=== PATIENT | male | born 1935 | race Caucasian/White ===

== ENCOUNTER 2020-04-22 17:52 | Emergency (ER) | payer MEDICARE, SELFPAY ==
[2020-04-22] VITALS (31 sets, daily range): BP systolic 108–131; BP diastolic 69–96; PULSE 65–99; RESP 17–28; TEMP 37.6; O2SAT 92–99
--- NOTE | ~2020-04-22 | CT_ITS ---
EXAMINATION: CT brain wo con DATE: 04/22/2020 19:45 INDICATION: Changes in mentation TECHNIQUE: Computed tomography (CT) of the head was performed without intravenous contrast. Sagittal and coronal reconstructions were performed. The mA was adjusted according to patient size. Iterative reconstruction technique was employed. The dose-length product was 681.00 mGy-cm. COMPARISON: None FINDINGS: Small old infarct in the right cerebellar hemisphere. No acute intracranial hemorrhage, acute infarct ion or abnormal extra axial fluid collection. There is mild scattered white matter hypoattenuation co nsistent with chronic small vessel ischemic disease. Symmetric prominence of the sulci and ventricles consistent with moderate age-appropriate diffuse cerebral volume loss. No mass/mass effect. Changes of bilateral intraocular lens replacement. The orbits, paranasal sinuses and mastoid air cells are no rmal. Intracranial calcified cerebral atherosclerosis is noted. IMPRESSION: 1. Small old right cerebellar infarct. No acute intracranial process. 2. Age-related changes including moderate diffuse volume loss and mild scattered white matter hypoatt enuation consistent with chronic small vessel ischemic disease. Reviewed, dictated and finalized at location A. LE DBA IMPRESSION: 1. Small old right cerebellar infarct. No acute intracranial process. 2. Age-related changes including moderate diffuse volume loss and mild scattere d white matter hypoattenuation consistent with chronic small vessel ischemic di sease.
--- NOTE | ~2020-04-22 | XR_ITS ---
EXAMINATION: XR chest 1V portable DATE: 04/22/2020 19:50 INDICATION: Lethargy. Transient alteration of awareness. TECHNIQUE: frontal view of the chest was obtained. COMPARISON: None FINDINGS: Animal streaky bibasilar opacities and favor atelectasis over pneumonia. No other airspace opacities, pulmonary edema, pleural effusion or pneumothorax. Heart size within normal limits for AP technique with paracardial fat pad extending between the apex of the heart and the left costophrenic angle. Med chantale sternotomy wires and changes of prior aortic valve repair. Severe thoracic and lower cervical spo ndylosis. IMPRESSION: 1. Mild bibasilar atelectasis. Reviewed, dictated and finalized at location A. ISH LITERATURE PROFESSOR
--- NOTE | 2020-04-22 18:07 | ECG_ITS ---
Measurements Intervals [place] Rate: 79 P: TX: 0 QRS: -11 QRSD: 133 T: 127 QT: 391 QTc: 449 Interpretive Statements ATRIAL FIBRILLATION VENTRICULAR PREMATURE COMPLEX LEFT BUNDLE BRANCH BLOCK ABNORMAL ECG Electronically Signed On 04-23-2020 7:01:29 BUSINESS AND SERVICES INSTRUCTOR by Jesus Holman D.O.
[2020-04-22 18:38] LABS: Basophils Percent Auto 0.5 % (0.2-1.2); Eosinophils Percent Auto 0.3 % (0-4.4); Hematocrit 45.9 % (42.0-52.0); Immature Granulocyte Absolute 0.01 K/mm3 (0.00-0.031); Immature Granulocyte Percent A 0.2 % (0-0.5); Lymphocytes Absolute Auto 0.75 K/mm3 (0.9-3.2); Lymphocytes Percent Auto 12.5 % (18.3-44.2); Mean Corpuscular HGB Conc 34.9 g/dl (32-36); Mean Corpuscular Hemoglobin 32.2 pg (26-34); Mean Corpuscular Volume 92.4 fl (80-100); Mean Platelet Volume 9.7 fl (7.4-10.4); Monocytes Absolute Auto 0.5 K/mm3 (0.1-0.6); Neutrophils Absolute Auto 4.7 K/mm3 (1.3-6.7); Neutrophils Percent Auto 77.5 % (45.5-73.1); Platelet Count Result 158 k/mm3 (150-375); Red Blood Count 4.97 M/mm3 (4.6-6.20); Red Cell Distribution Width 13.2 % (11.5-14.5)
[2020-04-22 18:48] LABS: Alanine Aminotransferase 16 U/L (4-50); Albumin Level 4.3 g/dL (3.5-5.1); Alkaline Phosphatase 77 U/L (38-126); Anion Gap 7 mmol/L (8-16); Aspartate Amino Transferase 24 U/L (17-59); Bilirubin,Total 0.8 mg/dL (0.2-1.3); Blood Urea Nitrogen 21 mg/dL (9-20); Calcium 9.4 mg/dL (8.4-10.2); Carbon Dioxide 27 mmol/L (22-30); Chloride 104 mmol/L (98-107); Estimated CRCL calculation 39 ml/min; Estimated Glomerular Filt Rate 48; Glucose 105 mg/dL (75-110); Potassium 4.3 mmol/L (3.4-5.0); Sodium 138 mmol/L (137-145)
[2020-04-22 18:57] LABS: Add Urine Microscopic? YES; Appearance Urine Clear (Clear); Bilirubin Urine Negative (Negative); Blood Urine Negative (Negative); Color Urine Yellow (Yellow); Glucose Urine UA Negative (Negative); Ketones Urine Trace mg/dL (Negative); Leukocyte Esterase Ur Negative LEU/UL (Negative); Mucus Urine Few /lpf; Nitrate Urine Negative (Negative); Protein Urine 1+ mg/dL (Negative); RBC Urine 0-2 /hpf (0-2); Specific Grav Ur 1.025 (1.001-1.035); Squamous Epithelial Cell Urine Rare /hpf (Few); WBC Urine 0-3 /hpf
--- NOTE | 2020-04-22 21:08 | ED.GENADULT ---
HPI - General Adult General Chief complaint: Altered Mental Status Stated complaint: uti Time Seen by Provider: 04/22/20 17:57 Source: EMS Mode of arrival: EMS Limitations: dementia History of Present Illness HPI narrative: Patient with dementia Alzheimer's presents with chief complaint of fatigue and 2 episodes of incontinence prior to arrival. Patient is skilled nursing wanted to make sure that he does not have a UTI. Patient is normally very active today states that he has been more fatigued today. Patient has not had fever, chills, nausea, vomiting, diarrhea. They were able to get him to eat lunch today. Patient denies any pain. Patient states that he does not know why he is in the emergency department. Related Data Home Medications Medication Instructions Recorded Confirmed mirtazapine 45 mg PO DAILY 04/22/20 polyethylene glycol 3350 [Miralax] 17 g PO DAILY 04/22/20 quetiapine 25 mg PO DAILY 04/22/20 rivaroxaban [Xarelto] 20 mg PO DAILY 04/22/20 04/22/20 simvastatin 10 mg PO DAILY 04/22/20 trazodone 50 mg PO DAILY PRN 04/22/20 Allergies Allergy/AdvReac Type Severity Reaction Status Date / Time No Known Allergies Allergy Verified 04/22/20 18:11 Review of Systems Review of Systems: Narrative: CONSTITUTIONAL: Reports fatigue denies fever, chills, or sweats. EYES: Denies visual changes, redness, or discharge. ENT: Denies rhinorrhea, congestion, sore throat, or otalgia. CARDIOVASCULAR: Denies chest pain, palpitations, or edema. RESPIRATORY: Denies cough or dyspnea. GASTROINTESTINAL: Denies abdominal pain, nausea, vomiting, or diarrhea. GENITOURINARY: Reports 2 episodes of incontinence denies dysuria or hematuria. SKIN: Denies rash or itching. MUSCULOSKELETAL: Denies back pain, joint pain, or myalgia. NEUROLOGIC: Denies headache, numbness, dizziness, or weakness. PSYCHIATRIC: Denies anxiety or depression. Exam Narrative: Exam Narrative: GENERAL: Well-appearing, well-nourished, and in no acute distress. HEAD: Normocephalic, atraumatic. EYES: PERRLA and EOMI. NECK: Supple. No adenopathy or masses. CHEST: Clear to auscultation. No respiratory distress. No wheezes rales or rhonchi HEART: Irregular rate and rhythm of A. fib?patient's baseline. ABDOMEN: Soft, nontender, nondistended, normal active bowel sounds. EXTREMITIES: Normal range of motion. No edema. Patient able to ambulate. SKIN: Warm, dry, no rash. NEURO: No focal deficits. Alert to self but not to situation. PSYCH: Normal mood and affect. Course Vital Signs Vital signs: Vital Signs Pulse Rate 77 04/22/20 17:58 Respiratory Rate 23 H 04/22/20 17:58 Pulse Oximetry 96 04/22/20 17:58 Temperature 99.7 F H 04/22/20 18:03 Pulse Rate 80 04/22/20 19:51 Respiratory Rate 21 H 04/22/20 19:30 Blood Pressure 109/71 04/22/20 18:46 Pulse Oximetry 96 04/22/20 19:51 Medical Decision Making MDM Narrative Medical decision making narrative: Patient is daughter is now here in the emergency department and reports the patient did receive his Covid shot yesterday. Patient had COVID in June. Patient's work-up has been negative for any acute findings. It is likely that the is due to receiving his Covid injection. Patient has been able to ambulate appropriately. Patient daughter states other than him being more tired acting his mentation is otherwise at his baseline. She states he also complained of not having any pain but other symptoms to moderate as well. Differential Diagnosis Differential Diagnosis: UTI, CVA, pneumonia, sepsis, Vital Signs Vital Signs: Vital Signs Pulse Rate 77 04/22/20 17:58 Respiratory Rate 23 H 04/22/20 17:58 Pulse Oximetry 96 04/22/20 17:58 Temperature 99.7 F H 04/22/20 18:03 Pulse Rate 80 04/22/20 19:51 Respiratory Rate 21 H 04/22/20 19:30 Blood Pressure 109/71 04/22/20 18:46 Pulse Oximetry 96 04/22/20 19:51 Lab Data Result diagrams: 04/22/20 18:28 04/22/20
--- NOTE | 2020-04-22 22:24 | PC.NURSE ---
[facility]
== END 2020-04-22 22:21 ==
PROVIDERS: Emergency Provider Emergency Medicine; PCP Internal Medicine
DX: R53.83 Other fatigue (principal); Z86.16 Personal history of COVID-19; I48.91 Unspecified atrial fibrillation; Z79.01 Long term (current) use of anticoagulants; I44.7 Left bundle-branch block, unspecified; I49.3 Ventricular premature depolarization; R91.8 Other nonspecific abnormal finding of lung field
CPT/HCPCS: 36415; 51701; 70450; 71045; 80053; 81001; 85025; 93005; 99284

== ENCOUNTER 2021-04-08 09:11 | Inpatient (IN) | payer MEDICARE, SELFPAY ==
--- NOTE | ~2021-04-08 | CT_ITS ---
EXAMINATION: CT lumbar spine jasmyne kirkland EXAM DATE: 04/08/2021 11:11 INDICATION: right sided low back pain . TECHNIQUE: Spiral CT lumbar spine was performed without contrast. Axial, coronal and sagittal images of the lumbar spine were reviewed. The dose-length product (DLP) for this examination was 1206.07 mGy -cm. The exposure was tailored according to patient size (auto mA exposure control), and iterative r econstruction (ASIR) was used as additional dose reduction technique. There is no prior study for co mparison. FINDINGS: There is mild to moderate compression fracture along the inferior endplate of L3, which cou ld be acute. No unstable type fractures. Mild chronic compression fracture of L2. There is moderate to severe disc disease and facet arthropathy at L5-S1, and moderate bilateral neura l foraminal stenosis. There is 3 mm anterolisthesis L4 on L5 with severe facet arthropathy, moderate to severe central canal and bilateral neural foraminal stenosis. Moderate central canal and left katalina ral foraminal stenosis at L3-4. Less spondylosis at the levels above. Mild lumbar levoscoliosis. Larg e right nephrolithiasis, nonobstructing inferior calyceal stones. Nonspecific presacral edema. IMPRESSION: 1. Acute appearing mild to moderate compression fracture L3 inferior endplate. 2. L4-5 grade 1 anterolisthesis, severe central canal stenosis, moderate to severe central canal and neural foraminal stenosis. 3. Less spondylosis other levels. 4. Mild lumbar levoscoliosis. 5. Nonspecific presacral edema. 6. Right nephrolithiasis. Reviewed, dictated and finalized at location A. NESS ANALYST SALES OPERATIONS IMPRESSION: 1. Acute appearing mild to moderate compression fracture L3 inferior endplate. 2. L4-5 grade 1 anterolisthesis, severe central canal stenosis, moderate to se candace central canal and neural foraminal stenosis. 3. Less spondylosis other levels. 4. Mild lumbar levoscoliosis. 5. Nonspecific presacral edema. 6. Right nephrolithiasis.
--- NOTE | ~2021-04-08 | XR_ITS ---
EXAMINATION: XR hip RT min 3V w AP pelvis DATE: 04/08/2021 10:09 INDICATION: Right hip pain. TECHNIQUE: An anteroposterior view of the pelvis on 2 radiographs and 3 views of right hip were obtai rahat. COMPARISON: None. FINDINGS: Bone alignment is normal. No fracture. There is mild osteoarthritis of the hips. There is a t least mild lumbar spondylosis. IMPRESSION: 1. Mild osteoarthritis of the hips. Reviewed, dictated and finalized at location A. CT SALES PROFESSIONAL
--- NOTE | ~2021-04-08 | XR_ITS ---
EXAMINATION: XR barium swallow modified EXAM DATE: 04/09/2021 12:57 INDICATION: St Reccomended Dysphagia . TECHNIQUE: Modified barium esophagram was performed by speech pathologist with radiologist Dr. Mane Romano present to administered fluoroscopy. Speech pathologist administered barium in varying consis tencies as per speech pathologist documentation. This was recorded on tape. There was total fluorosc opic time of 2.9 minutes. The DAP for this procedure was 2.5 Gycm2. A total of 2 images sent to PAC S from the exam. FINDINGS: Oral stage: Slow oral transit. Premature spillage. Pharyngeal phase: Reduced laryngeal elevation, closure. Sinus residual. Laryngeal penetration: Demonstrated, mostly thin liquids.. Aspiration: Demonstrated. Laryngeal sensitivity: Inconsistent. IMPRESSION: Aspiration demonstrated; Please refer to speech pathologist findings and specific feedin g recommendations. Reviewed, dictated and finalized at location A. IMPLANT MACHINE OPERATOR IMPRESSION: Aspiration demonstrated; Please refer to speech pathologist findin gs and specific feeding recommendations.
--- NOTE | ~2021-04-08 | XR_ITS ---
MODIFIED ESOPHAGRAM HISTORY: Dysphagia. TECHNIQUE: Modified barium esophagram was performed on 04/13/2021. I administered fluoroscopy and perf ormed the exam with speech pathologist. Patient was seated for lateral fluoroscopic imaging for koki stion of thin liquids, pudding, solids and quantified amounts, followed by thin liquids in uncontroll ed amounts. This was recorded on tape. A single fluoroscopic spot image was also recorded. The DAP fo r this procedure was 3.04 Gycm2. The amount of fluoroscopy time used during this procedure was 3.8 mi nutes. FINDINGS: Oral stage: Adequate function but with slow mastication. Pharyngeal stage: There is laryngeal penetration and trace aspiration. Mild residue in the vallecula, piriform sinus and along the pharyngeal wall. Prominent cricopharyngeal dysfunction. Cervical/esophageal stage: Adequate function. IMPRESSION: Laryngeal penetration with trace aspiration. Please correlate with speech pathologist fi ndings and specific feeding recommendations. Reviewed, dictated and finalized at location A. ET PRINTING OPERATOR IMPRESSION: Laryngeal penetration with trace aspiration. Please correlate with speech pathologist findings and specific feeding recommendations.
--- NOTE | ~2021-04-08 | XR_ITS ---
XR knee RT min 4V 04/08/2021 11:04 Indication: Right knee pain and laceration Procedure: 4 views of the right knee Comparison: No prior studies for comparison. Findings: There is moderate osteoarthritis of the patellofemoral compartment. No acute fracture or tr aumatic malalignment is identified. No significant joint effusion. Impression: 1: Moderate patellofemoral compartment osteoarthritis. Reviewed, dictated and finalized at location B. ET CREASER Impression: 1: Moderate patellofemoral compartment osteoarthritis.
[2021-04-08 09:15] VITALS: BP 109/73; PULSE 87; RESP 16; TEMP 36.3; O2SAT 98
--- NOTE | 2021-04-08 10:55 | ED.LOWEXIN ---
HPI - Extremity Injury (Lower) General Chief Complaint: Extremity Injury, Lower <STEPHANIE Bateman Last Filed: 04/08/21 16:39> Stated Complaint: hip pain x 3days, no injury <STEPHANIE Bateman Last Filed: 04/08/21 16:39> Time Seen by Provider: 04/08/21 09:43 <STEPHANIE Bateman Last Filed: 04/08/21 16:39> Source: patient, family and EMS <STEPHANIE Bateman Last Filed: 04/08/21 16:39> Mode of arrival: EMS <STEPHANIE Bateman Last Filed: 04/08/21 16:39> Limitations: dementia <STEPHANIE Bateman Last Filed: 04/08/21 16:39> History of Present Illness HPI Narrative: This is an 85-year-old male that presents to the emergency department for right hip pain noted over the last couple of days. Patient with history of dementia. Most of history is obtained through daughter. Per patient's daughter he recently suffered a stroke a week ago. He was evaluated and discharged at an outside facility to return to the memory care unit at [facility] 5 days ago. They do not report any recent falls or injuries. But patient normally ambulates with a walker. He has been unable to do this over the last couple of days as he has been complaining of right posterior hip pain. Patient denies any pain at rest. He does report some pain with ROM. Denies fever, rash, numbness or weakness. <STEPHANIE Bateman Last Filed: 04/08/21 16:39> Related Data Home Medications: Home Medications Medication Instructions Recorded Confirmed mirtazapine 45 mg PO DAILY 04/22/20 polyethylene glycol 3350 [Miralax] 17 g PO DAILY 04/22/20 quetiapine 25 mg PO DAILY 04/22/20 rivaroxaban [Xarelto] 20 mg PO DAILY 04/22/20 04/22/20 simvastatin 10 mg PO DAILY 04/22/20 trazodone 50 mg PO DAILY PRN 04/22/20 <STEPHANIE Bateman Last Filed: 04/08/21 16:39> Allergies/Adverse Reactions: Allergies Allergy/AdvReac Type Severity Reaction Status Date / Time No Known Allergies Allergy Verified 04/22/20 18:11 <Adelita Mclean PA-C - Last Filed: 04/08/21 16:39> Review of Systems Review of Systems: CONSTITUTIONAL: Denies fever SKIN: Denies rash MUSCULOSKELETAL: Reports back pain, joint pain, and myalgia. NEUROLOGIC: Denies numbness, or weakness. <Adelita Mclean PA-C - Last Filed: 04/08/21 16:39> All systems reviewed & are unremarkable except as noted in HPI and below <Adelita Mclean PA-C - Last Filed: 04/08/21 16:39> PMFSH Past Medical History Medical History: Medical History (Updated 04/08/21 @ 13:57 by Adelita Mclean PA-C) History of CVA (cerebrovascular accident) History of dementia History of hyperlipidemia <Adelita Mclean PA-C - Last Filed: 04/08/21 16:39> Social History Social History: Social History (Updated 04/08/21 @ 10:59 by Adelita Mclean PA-C) Substance use: never <Adelita Mclean PA-C - Last Filed: 04/08/21 16:39> Exam Narrative: GENERAL: Elderly, well-nourished, and in no acute distress. HEAD: Normocephalic, atraumatic. EYES: PERRLA and EOMI. ENT: Nares clear, no rhinorrhea or epistaxis. Mucous membranes dry. Oropharynx without tonsillar hypertrophy exudate or other lesions. Bilateral TMs pearly ferreira non-bulging NECK: Supple. No adenopathy or masses. CHEST: Clear to auscultation. No respiratory distress. No wheezes rales or rhonchi HEART: Regular rate and rhythm. No murmur heard. Normal peripheral pulses. ABDOMEN: Soft, nontender, nondistended, normal active bowel sounds. EXTREMITIES: Normal range of motion. No edema or obvious deformity. Right knee with superficial abrasion. Normal DP pulses. Normal sensation SKIN: Warm, dry, no rash. NEURO: No focal deficits. Alert and oriented x1. CN II-XII grossly intact PSYCH: Normal mood and affect <Adelita Mclean PA-C - Last Filed: 04/08/21 16:39> Course COMPUTER SYSTEMS INTEGRATOR/PA Physician Supervision For this patient encounter, I reviewed the COMPUTER SYSTEMS INTEGRATOR or PA documentation, treatment plan, and medical de
[2021-04-08] MEDS: SODIUM CHLORIDE 0.9% IV 500 ML 999 ML IV CONT (11:39)
[2021-04-08] MEDS: ACETAMINOPHEN 500 MG TABLET 1000 MG PO (11:39)
[2021-04-08 11:42] LABS: Basophils Absolute Auto 0.1 K/mm3 (0.0-0.1); Basophils Percent Auto 0.4 % (0.2-1.2); Eosinophils Percent Auto 0.2 % (0-4.4); Hematocrit 42.7 % (42.0-52.0); Hemoglobin 14.7 g/dL (14.0-18.0); Immature Granulocyte Absolute 0.04 K/mm3 (0.00-0.031); Immature Granulocyte Percent A 0.3 % (0-0.5); Lymphocytes Absolute Auto 1.35 K/mm3 (0.9-3.2); Lymphocytes Percent Auto 10.8 % (18.3-44.2); Mean Corpuscular HGB Conc 34.4 g/dl (32-36); Mean Corpuscular Hemoglobin 32.2 pg (26-34); Mean Corpuscular Volume 93.4 fl (80-100); Mean Platelet Volume 9.9 fl (7.4-10.4); Monocytes Percent Auto 7.9 % (2.6-8.5); Neutrophils Absolute Auto 10.1 K/mm3 (1.3-6.7); Neutrophils Percent Auto 80.4 % (45.5-73.1); Platelet Count Result 190 k/mm3 (150-375); Red Blood Count 4.57 M/mm3 (4.6-6.20); Red Cell Distribution Width 13.7 % (11.5-14.5); White Blood Count 12.6 K/mm3 (4.5-10.0)
[2021-04-08 11:48] VITALS: BP 109/85; PULSE 86; RESP 12; O2SAT 100
--- NOTE | 2021-04-08 11:49 | PC.NURSE ---
pt attempted to urinate at this time
[2021-04-08 11:55] LABS: Alanine Aminotransferase 25 U/L (4-50); Albumin Level 4.1 g/dL (3.5-5.1); Alkaline Phosphatase 105 U/L (38-126); Anion Gap 7 mmol/L (8-16); Aspartate Amino Transferase 31 U/L (17-59); Bilirubin,Total 1.9 mg/dL (0.2-1.3); Blood Urea Nitrogen 24 mg/dL (9-20); Carbon Dioxide 23 mmol/L (22-30); Chloride 103 mmol/L (98-107); Estimated CRCL calculation 52 ml/min; Estimated Glomerular Filt Rate 58; Glucose 120 mg/dL (65-110); Potassium 4.3 mmol/L (3.4-5.0); Sodium 133 mmol/L (137-145)
[2021-04-08 13:33] LABS: Add Urine Microscopic? YES; Appearance Urine Clear (Clear); Bacteria Urine Trace /hpf; Bilirubin Urine Negative (Negative); Blood Urine 1+ (Negative); Color Urine Amber (Yellow); Glucose Urine UA Negative (Negative); Ketones Urine Trace mg/dL (Negative); Leukocyte Esterase Ur Trace LEU/UL (Negative); Mucus Urine Few /lpf; Nitrate Urine Negative (Negative); Protein Urine 1+ mg/dL (Negative); RBC Urine 21-50 /hpf (0-2); Specific Grav Ur 1.029 (1.001-1.035); WBC Urine 21-30 /hpf
[2021-04-08 15:18] VITALS: BP 107/64; PULSE 100; RESP 18; O2SAT 100
--- NOTE | 2021-04-08 15:25 | PCOTNOTE ---
04/08 Pt. to be evaluated upon admission to hospital room
--- NOTE | 2021-04-08 15:47 | PC.NURSE ---
This RN and Cat, RN attempted to get pt up to walk. Pt unable to stand without 2 full assist.
--- NOTE | 2021-04-08 16:03 | PCCCNOTE ---
Addendum entered by Christine Mclaughlin RN 04/09/21 07:23: Referral sent to [facility], pending acceptance. Error in note below, OT states patient CANNOT be added as a priority. Addendum entered by Christine Mclaughlin RN 04/08/21 17:01: Called back to Kira at [facility] to notify that patient will be admitted for observation and will not return tonight, will be working with family for SNF. Original Note: Called to ED to speak with family regarding placement and current facility [facility]. Spoke with daughter Aye and Elsie in ED Family services room. They state that patient had a stroke a week prior and was at [facility] and was discharged back to [facility] on 04/03. Facility was advised that he was a min assist of 1 but per staff at [facility] is a person assist. Today he couldn't move and was having extreme pain and was transported via EMS to ED at [facility] instead of [facility]. Explained that he is stable for dc at this time but will need to get his mobility assessed. The patient's daughters understand that if at his PLOF and stable for dc he will need to go back to [facility], but could provide resource list for nursings home for skilled. Aye states that she is interested in [facility] and [facility]. Advised that [facility] is on hold for admissions but could call contact at [facility]. Spoke with provider who ordered PT/OT, called to [facility] lead and requested ED consult. [facility] states that they have 16 patients that are a priority and will have to consult management to see about ED priority. [facility] to call rental boats caretaker back. Called to [facility] and spoke with Kira Cain foundation director- she states that patient received late on Tuesday and was 2 person assist over the weekend and pocketing food. He has a wheelchair and urinal, Today patient was screaming in pain, and couldn't move, MACARONI PRESS OPERATOR was consulted and advised to send patient to call EMS for ED. [facility] phone lines were down so called family on a cell phone which was not identified by MATTEO Griffiths. Family would have sent him to [facility] instead of [facility]. Advised to Kira would update. Phone call received from Karen FRANZ-states that patient can be added as a priority in the priority list of post ops and discharges. States that they are happy to see on the floor, and if any concerns about mobility would recommend admission. Could have nurses try to get him up. Provider Adelita BROWN notified. Bedside RN Kimmy and Additional RN Cat need two full assist for for bed mobility and unable to support his legs with two full assists. STEPHANIE updated and will consult for admission. [facility] on hold for admissions, Called to [facility] no beds until Tuesday. OBRA request called in. Provider Hiliary and ED Provider Adelita -notified that patient was noticed to be pocketing food.
[2021-04-08] MEDS: HYDROcodone/acetaminophen (*CRX) 5-325 MG TABLET 1 TAB PO (16:16)
[2021-04-08 17:32] VITALS: BP 111/75; PULSE 86; RESP 18; O2SAT 99
--- NOTE | 2021-04-08 18:11 | PC.NURSE ---
This patient, Willis Flynn, was admitted to 2 Medical Room 257-. Patient/family oriented to hospital policies and general routines including ID bracelet, bed and alarms, visiting hours, pain management, procedures, bathroom and other care routines, personal items, smoking policy, room service/diet, and visiting hours. Information on how to activate the Rapid Response Team has been discussed. Patient/Family are encouraged to report perceived risks to care and to ask questions if they do not understand what they are told or what they should do.
[2021-04-08 18:30] VITALS: BP 128/82; PULSE 78; RESP 18; TEMP 36.4; O2SAT 100
--- NOTE | 2021-04-08 18:30 | PM.IMHP ---
H&P: HPI History of Present Illness Date/Time: 04/08/21 18:30 Chief Complaint: Weakness and right hip pain. Narrative: This is a pleasant 85-year-old male with dementia, hypertension, depression, paroxysmal atrial fibrillation, and history of stroke who presented to the emergency department via EMS from [facility] for evaluation of weakness and right leg pain. Given his dementia and short-term memory loss he is not able to give a great history and as such some of the following is obtained via a review of his electronic medical records as well as discussions with his daughters at bedside. He was recently hospitalized at [facility] in [place] early last week after he sustained an unwitnessed fall and was found to have a right face and mouth droop. According to the daughters, MRI showed an acute infarct in the leonel and he was discharged back to his memory care facility last Tuesday. He needed quite a bit of help that first day however this past weekend he has been doing much better. These last 3 days however he has reportedly been complaining of discomfort in his right hip and has been needing more assistance than his memory care facility can provide and they sent him to the ER today for evaluation. Imaging of the hips and pelvis showed mild osteoarthritis of the hips. Right knee x-ray showed moderate patellofemoral compartment osteoarthritis. CT of the lumbar spine showed an acute appearing [id number] compression fracture of the L3 inferior endplate, L4-L5 grade 1 anterolisthesis with severe central canal stenosis and moderate to severe central canal and neural foraminal stenosis. The patient was unable to get up and ambulate alone and required 2 to 3 person assist and [facility] declined to take him back due to this. The ED provider spoke with Dr. Aguirre (neuro surgery at [facility]) who felt the patient is appropriate for further outpatient evaluation and management. At this time the patient is being admitted overnight for pain control and PT / OT evaluation. Currently he has no complaints. In fact he denied having any hip pain though noticeable on exam. Additionally he was found to have an abnormal urinalysis and with further questioning he does mention mild dysuria and urgency. It is not unusual for him to have urinary incontinence. He has not had bowel incontinence. He denies lower extremity paresthesias, weakness, and saddle anesthesia. He does not think he has had any falls recently however he did not remember the fall last week that sent him to the ER. Review of Systems Review of Systems: Twelve systems were reviewed. Daughter state he has not been eating very well. He passed a swallow study at [facility] however daughter reports that he has been pocketing food and he is been on a soft diet. Patient denies abdominal pain, nausea, vomiting, and diarrhea. No fever, chills, or sweats. No recent cold or flu symptoms. He denies chest pain shortness of breath. Except as documented, all other systems were reviewed and are negative. But again this is limited due to a short-term memory loss. [facility], [facility] Past Medical History Medical History (Updated 04/09/21 @ 00:17 by Florence Wilder PA-C) Cerebrovascular accident Dementia Depression Gastroesophageal reflux disease History of kidney stones Hyperlipidemia Paroxysmal atrial fibrillation Surgical History Surgical History (Updated 04/09/21 @ 00:11 by Florence Wilder PA-C) History of aortic valve replacement History of cataract extraction History of cystoscopy Family History Family History (Updated 04/09/21 @ 00:12 by Florence Wilder PA-C) Other Hypertension Social History Social History (Updated 04/09/21 @ 00:13 by Florence Wilder PA-C) Social History: Resides in a memory care facility at [facility]. Lifelong nonsmoker. No alcohol or drug use. Aye Chadwick, daughter, is his primary healthcare power of district attorney. Elsie Braden, daughter, is secondary. Code status
[2021-04-08 22:00] VITALS: BP 113/80; PULSE 81; RESP 20; TEMP 36.6; O2SAT 98
[2021-04-09] MEDS: SODIUM CHLORIDE 0.9% IV 1,000 ML 100 ML IV CONT (00:44)
[2021-04-09 06:00] VITALS: BP 104/69; PULSE 66; RESP 20; TEMP 37.1; O2SAT 98
[2021-04-09 06:39] LABS: Hematocrit 36.2 % (42.0-52.0); Hemoglobin 12.2 g/dL (14.0-18.0); Mean Corpuscular HGB Conc 33.7 g/dl (32-36); Mean Corpuscular Hemoglobin 31.4 pg (26-34); Mean Corpuscular Volume 93.1 fl (80-100); Mean Platelet Volume 10.1 fl (7.4-10.4); Platelet Count Result 183 k/mm3 (150-375); Red Blood Count 3.89 M/mm3 (4.6-6.20); Red Cell Distribution Width 13.5 % (11.5-14.5); White Blood Count 10.4 K/mm3 (4.5-10.0)
[2021-04-09 06:55] LABS: Anion Gap 9 mmol/L (8-16); Blood Urea Nitrogen 24 mg/dL (9-20); Calcium 8.6 mg/dL (8.4-10.2); Carbon Dioxide 24 mmol/L (22-30); Chloride 102 mmol/L (98-107); Estimated CRCL calculation 56 ml/min; Estimated Glomerular Filt Rate > 60; Glucose 99 mg/dL (65-110); Potassium 4.2 mmol/L (3.4-5.0); Sodium 135 mmol/L (137-145)
[2021-04-09] MEDS: lisinopriL 10 MG TABLET PO (08:13)
[2021-04-09] MEDS: allopurinoL 100 MG TABLET PO (08:13)
[2021-04-09] MEDS: ASPIRIN 81 MG ENTERIC TABLET PO (08:13)
[2021-04-09] MEDS: ATORVASTATIN 40 MG TABLET PO (08:14)
[2021-04-09] MEDS: MULTIVITAMINS /C LUTEIN (CENTRUM SILVER) TABLET *BKC 1 TAB PO (08:14)
[2021-04-09] MEDS: TAMSULOSIN HCL 0.4 MG CAPSULE PO (08:14)
[2021-04-09] MEDS: PANTOPRAZOLE 40 MG TABLET PO (08:14)
--- NOTE | 2021-04-09 09:52 | PCSTNOTE ---
Please refer to the Bedside Swallow Evaluation in the EMR. Please note, silent aspiration cannot be ruled out at bedside.
--- NOTE | 2021-04-09 13:36 | PM.IMPN ---
Progress Note: A&P Assessment and Plan (1) Closed compression fracture of L3 vertebra: Qualifiers: Encounter type: initial encounter Qualified Code(s): S32.030A - Wedge compression fracture of third lumbar vertebra, initial encounter for closed fracture Code(s): S32.030A - Wedge compression fracture of third lumbar vertebra, initial encounter for closed fracture Status: Acute Assessment and Plan: Likely sustained in fall last week as there were no reports of falls since that time. Dr. Aguirre (neurosurgery at [facility]) was contacted by the ED provider and he recommends outpatient follow-up with him on discharge. Conservative treatment for now including analgesics and progressive mobilization as tolerated. PT/ OT consulted. (2) Lumbar spinal stenosis: Code(s): M48.061 - Spinal stenosis, lumbar region without neurogenic claudication Status: Acute Assessment and Plan: Imaging shows severe central canal stenosis and moderate to severe central canal and neural foraminal stenosis. No evidence of cord compression by history or exam at this time. As above patient to follow-up as an outpatient with Neurosurgery. (3) Right sided sciatica: Code(s): M54.31 - Sciatica, right side Status: Acute Assessment and Plan: Plan is as detailed above. (4) Right nephrolithiasis: Code(s): N20.0 - Calculus of kidney Status: Acute Assessment and Plan: Patient did have blood in his urine however it was a straight catheterization. Unlikely that this is the cause of his hip pain. (5) Urinary tract infection: Qualifiers: Hematuria presence: without hematuria Urinary tract infection type: acute cystitis Qualified Code(s): N30.00 - Acute cystitis without hematuria Code(s): N39.0 - Urinary tract infection, site not specified Status: Acute Assessment and Plan: Patient reports urgency and dysuria and will be started on ceftriaxone, pending urine culture. (6) Dehydration: Code(s): E86.0 - Dehydration Status: Acute Assessment and Plan: He appears dry on exam and by labs and will be hydrated overnight. Encourage oral intake. Daughter reports he passed his swallow study last week at [facility] and records will be requested. I will ask speech therapy to do a bedside swallow on him however given reports of pocketing food. (7) Paroxysmal atrial fibrillation: Code(s): I48.0 - Paroxysmal atrial fibrillation Status: Acute Assessment and Plan: In a sinus rhythm. Recently started on Xarelto due to CVA and we will continue this though may need to re-evaluate depending on how he does with physical therapy and his fall risk. (8) Dementia: Code(s): F03.90 - Unspecified dementia without behavioral disturbance Status: Acute Assessment and Plan: Continue donepezil. Initiate fall precautions. (9) Cerebrovascular accident: Code(s): I63.9 - Cerebral infarction, unspecified Status: Inactive Assessment and Plan: Looks like pt has had a new stroke will order MRI brain, US caritids and echo consult neurology Pt failed his swallow study pt made NPO will need ST and nutritional consult Subjective Date/time seen: 04/09/21 13:36 Interval history: 85-year-old male with dementia, hypertension, depression, paroxysmal atrial fibrillation, and history of stroke who presented to the emergency department via EMS from [facility] for evaluation of weakness and right leg pain. Given his dementia and short-term memory loss he is not able to give a great history. Pt has dementia poor historial, but does complains of weakness in his r leg. Looks like pt has had a stroke pt also failed his swallow test and is currently npo. Pt had further imaging in ED- Imaging of the hips and pelvis showed mild osteoarthritis of the hips. Right knee x-ray showed moderate patellofemoral compartment oste
--- NOTE | 2021-04-09 13:40 | PCSTNOTE ---
Please refer to the Modified Barium Swallow Evaluation in the EMR.
[2021-04-09 14:00] VITALS: BP 112/70; PULSE 78; RESP 20; TEMP 37; O2SAT 100
[2021-04-09] MEDS: SODIUM CHLORIDE 0.9% IV 1,000 ML 70 ML IV CONT (15:12)
[2021-04-09] MEDS: RIVAROXABAN 20 MG TABLET PO (20:29)
[2021-04-09] MEDS: MIRTAZAPINE 15 MG TABLET 45 MG PO (20:29)
[2021-04-09] MEDS: DONEPEZIL HCL 10 MG TABLET PO (20:29)
[2021-04-09] MEDS: QUEtiapine FUMARATE 25 MG TABLET PO (20:29)
[2021-04-09] MEDS: traZODone HCL 50 MG TABLET PO (20:29)
[2021-04-09 22:00] VITALS: BP 117/70; PULSE 83; RESP 20; TEMP 37.1; O2SAT 98
[2021-04-10 06:00] VITALS: BP 114/78; PULSE 66; RESP 20; TEMP 36.8; O2SAT 98
[2021-04-10] MEDS: SODIUM CHLORIDE 0.9% IV 1,000 ML 70 ML IV CONT ×2 (06:00→21:02)
[2021-04-10] MEDS: PANTOPRAZOLE SODIUM IV 40 MG VIAL IV PUSH (08:56)
--- NOTE | 2021-04-10 09:38 | WPDNEURCNPN ---
Assessment and Plan Additional Plan 1. Dementia 2 Paroxysmal atrial fibrillation 3. Small old right cerebellar infarct for which patient is on Xarelto 20 mg at night 4. Significant spinal stenosis to the point of developing cauda equina syndrome. Obviously considering all the underlying medical problem surgical intervention will be extremely difficult but neurosurgical consultation can be obtained initially on tele whether they want to transfer the patient or not otherwise family has to be informed according this is not going to get better without surgical intervention but he has a significant risk patient for surgical intervention Consult date: 04/10/21 HPI: Willis Flynn is a 85 year old male admitted to the hospital for the complaints of weakness and right hip pain via emergency room from [facility] , in addition to the history of ongoing diagnosis of 1. Dementia 2. Hypertension 3. Paroxysmal atrial fibrillation 4. History of stroke ,patient has recently been hospitalized at [facility] after he sustained an unwitnessed fall and was found to have right face and mouth droop MRI documented an acute infarct in the leonel and he was discharged back to his facility reportedly he requires a quite a bit of help he has been complaining of discomfort in his right hip requiring more assistance in the memory care facility so they sent him to the ER for further evaluation, initial x-rays of the hips and pelvis documented mild osteoarthritis of the hip, moderate low femoral compartment osteoarthritis of right knee, CT of the lumbar spine acute appearing mild to moderate compression fracture of the L3 inferior endplate and grade 1 anterolisthesis at L4 and 5 with severe central canal stenosis and moderate to severe central canal and neural foraminal stenosis patient was unable to get up and ambulate a lawn and requires several persons to assist for Ivan Ramey declined to take him back patient's was referred to the neurosurgeon who felt the patient was only appropriate for further outpatient evaluation and management so he was admitted to the hospital here for overnight for pain control and physical and occupational therapy evaluation he did complain of mild dysuria and urgency but he was not incontinent of bowels and he did not have saddle anesthesia. Specific past history includes 1. Dementia 2. Cerebrovascular accident and 3. Paroxysmal atrial fibrillation Review of Systems Review of Systems: All systems reviewed & are unremarkable except as noted in HPI and below PMFSH Past Medical History Medical History Cerebrovascular accident Dementia Depression Gastroesophageal reflux disease History of kidney stones Hyperlipidemia Paroxysmal atrial fibrillation Surgical History Surgical History History of aortic valve replacement History of cataract extraction History of cystoscopy Family History Family History Other Hypertension Social History Social History Social History: Resides in a memory care facility at [facility]. Lifelong nonsmoker. No alcohol or drug use. Aye Chadwick, daughter, is his primary healthcare power of managing attorney. Elsie Braden, daughter, is secondary. Code status: DNR. Meds Home Medications and Allergies Home Medications Medication Instructions Recorded Confirmed Type mirtazapine 45 mg PO HS 04/22/20 04/08/21 History polyethylene glycol 3350 [Miralax] 17 g PO DAILY PRN 04/22/20 04/08/21 History quetiapine 25 mg PO HS 04/22/20 04/08/21 History rivaroxaban [Xarelto] 20 mg PO HS 04/22/20 04/08/21 History acetaminophen 325 - 650 mg PO Q4-6H PRN 04/08/21 04/08/21 History allopurinol 100 mg PO DAILY 04/08/21 04/08/21 History aspirin 81 mg PO DAILY 04/08/21 04/08/21 History atorvastatin 40 mg PO DAILY
--- NOTE | 2021-04-10 11:04 | PCSTNOTE ---
Please refer to the Bedside Swallow Evaluation in the EMR. Please note, silent aspiration cannot be ruled out at bedside.
--- NOTE | 2021-04-10 13:16 | PM.IMPN ---
Progress Note: A&P Assessment and Plan (1) Closed compression fracture of L3 vertebra: Qualifiers: Encounter type: initial encounter Qualified Code(s): S32.030A - Wedge compression fracture of third lumbar vertebra, initial encounter for closed fracture Code(s): S32.030A - Wedge compression fracture of third lumbar vertebra, initial encounter for closed fracture Status: Acute Assessment and Plan: Likely sustained in fall last week as there were no reports of falls since that time. Dr. Aguirre (neurosurgery at [facility]) was contacted by the ED provider and he recommends outpatient follow-up with him on discharge. Conservative treatment for now including analgesics and progressive mobilization as tolerated. PT/ OT consulted. (2) Lumbar spinal stenosis: Code(s): M48.061 - Spinal stenosis, lumbar region without neurogenic claudication Status: Acute Assessment and Plan: Imaging shows severe central canal stenosis and moderate to severe central canal and neural foraminal stenosis. No evidence of cord compression by history or exam at this time. As above patient to follow-up as an outpatient with Neurosurgery. (3) Right sided sciatica: Code(s): M54.31 - Sciatica, right side Status: Acute Assessment and Plan: Plan is as detailed above. (4) Right nephrolithiasis: Code(s): N20.0 - Calculus of kidney Status: Acute Assessment and Plan: Patient did have blood in his urine however it was a straight catheterization. (5) Urinary tract infection: Qualifiers: Hematuria presence: without hematuria Urinary tract infection type: acute cystitis Qualified Code(s): N30.00 - Acute cystitis without hematuria Code(s): N39.0 - Urinary tract infection, site not specified Status: Acute Assessment and Plan: Patient reports urgency and dysuria and will be started on ceftriaxone, urine culture is negative. (6) Dehydration: Code(s): E86.0 - Dehydration Status: Acute Assessment and Plan: He appears dry on exam and by labs and will be hydrated overnight. Encourage oral intake. Daughter reports he passed his swallow study last week at [facility] and records will be requested. Pt failed his bedside swallow and MBS. Cesar rpt MBS on tuesday. (7) Paroxysmal atrial fibrillation: Code(s): I48.0 - Paroxysmal atrial fibrillation Status: Acute Assessment and Plan: In a sinus rhythm. Recently started on Xarelto due to CVA and we will continue this though may need to re-evaluate depending on how he does with physical therapy and his fall risk. (8) Dementia: Code(s): F03.90 - Unspecified dementia without behavioral disturbance Status: Acute Assessment and Plan: Continue donepezil. Initiate fall precautions. (9) Cerebrovascular accident: Code(s): I63.9 - Cerebral infarction, unspecified Status: Inactive Assessment and Plan: Looks like pt has had a recent stroke Pt had MRI brain, US carotids in [facility]. Consult neurology Pt failed his swallow study pt made NPO with iv fluids will need ST and nutritional consult Pt to continue PT/ OT/ ST here Subjective Date/time seen: 04/10/21 13:16 Interval history: 85-year-old male with dementia, hypertension, depression, paroxysmal atrial fibrillation, and history of stroke who presented to the emergency department via EMS from [facility] for evaluation of weakness and right leg pain. Given his dementia and short-term memory loss he is not able to give a great history. Pt has dementia poor historial, but does complains of weakness in his r leg. Looks like pt has had a stroke pt also failed his swallow test and is currently npo. Pt had further imaging in ED- Imaging of the hips and pelvis showed mild osteoarthritis of the hips. Right knee x-ray showed moderate patellofemoral compartment osteoarthritis. CT of the
[2021-04-10 14:00] VITALS: BP 125/95; PULSE 95; RESP 16; TEMP 37.3; O2SAT 97; BMI 28.0
--- NOTE | 2021-04-10 14:10 | PCDIET ---
Nutrition consult. Plans for repeat MBS on Thursday 04/13. At this time recommend Dobbhoff tube feedings of Jevity 1.2 at 20 ml/hr advance by 10 ml q 4 hours to goal rate of 75 ml/hr over 22 hours. Providing 1980 kcals/91 gms protein/1332 ml water. Free water flush 30 ml q 4 hours.
[2021-04-10] MEDS: LORazepam INJ (*CRX) 2 MG/ML VIAL 0.5 MG IV PUSH ×2 (15:20→21:03)
[2021-04-10] MEDS: ASPIRIN 300 MG SUPPOSITORY RECTAL (16:16)
[2021-04-10 22:00] VITALS: BP 131/98; PULSE 91; RESP 18; TEMP 37.1; O2SAT 96
--- NOTE | 2021-04-11 | ECHO_ITS ---
Patient Info Name: Willis Flynn Age: 85 years : 1935 Gender: Male Ht: 73 in Wt: 212 lbs BSA: 2.24 m2 HR: 75 bpm BP: 112 / 61 mmHg Heart Rhythm: Atrial Fibrillation Technical Quality: Fair Exam Date: 04/11/2021 12:36 PM Exam Location: [facility] Exam Room: 257 Patient Status: Inpatient Admit Date: 04/09/2021 Staff Ordering Physician: Che Lopez MD Warehouse [employer] Worker: Elif Lopez RDCS Attending Provider: Amy Harris MD Referring Physician: John COBB; Exam Type: CA echo doppler color flow Study Info Indications - RECENT STROKE AFIB S/P FALL Complete two-dimensional, color flow and Doppler transthoracic echocardiogram is performed. Summary 1. Complete two-dimensional, color flow and Doppler transthoracic echocardiogram is performed. 2. Technically difficult study with limited views. Regional wall motion assessment limited due to poor endomyocardial border definition. 3. Left ventricular chamber dimension is normal. 4. Left ventricular systolic function is normal, estimated at 65-70%. 5. Left ventricular septal wall motion is abnormal with septal motion related to bundle branch block. 6. Left atrial chamber dimension is moderately enlarged. 7. There is no aortic valve stenosis. 8. There is moderate mitral valve stenosis. 9. There is trace tricuspid valve regurgitation. 10. Mild pulmonary hypertension, estimated pulmonary arterial systolic pressure is 42 mmHg. Left Ventricle Left ventricular chamber dimension is normal. Left ventricular systolic function is normal, estimated at 65-70%. There is no increased left ventricular wall thickness. Left ventricular septal wall motion is abnormal with septal motion related to bundle branch block. The left ventricular diastolic function is abnormal. Technically difficult study with limited views. Regional wall motion assessment limited due to poor endomyocardial border definition. Right Ventricle Right ventricular chamber dimension is normal. Right ventricular systolic function is normal. Left Atria Left atrial chamber dimension is moderately enlarged. Right Atria Right atrial chamber dimension is not well visualized. Aortic Valve The aortic valve is not well visualized. There is no aortic valve stenosis. There is mild aortic valve regurgitation. There is moderate aortic valve calcification. Pulmonic Valve The pulmonic valve is not well visualized. There is trace pulmonic regurgitation. Mitral Valve The mitral valve has thickened leaflets and calcified leaflets. There is moderate mitral valve stenosis. There is mild mitral valve regurgitation. The mitral valve annulus is severely calcified. Tricuspid Valve The tricuspid valve leaflets are not well visualized. There is trace tricuspid valve regurgitation. Mild pulmonary hypertension, estimated pulmonary arterial systolic pressure is 42 mmHg. Pericardium/Pleural The pericardium appears normal. There is no pericardial effusion. Aorta The aortic root size at the sinus of Valsalva is normal. There is mild aortic atherosclerosis. Left Ventricular Outflow Tract Name Value Normal LVOT 2D LVOT Diameter 2.1 cm LVO
[2021-04-11 06:00] VITALS: BP 112/61; PULSE 70; RESP 21; TEMP 36.3; O2SAT 100
[2021-04-11] MEDS: ASPIRIN 300 MG SUPPOSITORY RECTAL (08:24)
[2021-04-11] MEDS: PANTOPRAZOLE SODIUM IV 40 MG VIAL IV PUSH (08:24)
--- NOTE | 2021-04-11 11:57 | PM.IMPN ---
Progress Note: A&P Assessment and Plan (1) Closed compression fracture of L3 vertebra: Qualifiers: Encounter type: initial encounter Qualified Code(s): S32.030A - Wedge compression fracture of third lumbar vertebra, initial encounter for closed fracture Code(s): S32.030A - Wedge compression fracture of third lumbar vertebra, initial encounter for closed fracture Status: Acute Assessment and Plan: Likely sustained in fall last week as there were no reports of falls since that time. Dr. Aguirre (neurosurgery at [facility]) was contacted by the ED provider and he recommends outpatient follow-up with him on discharge. Conservative treatment for now including analgesics and progressive mobilization as tolerated. PT/ OT consulted. (2) Lumbar spinal stenosis: Code(s): M48.061 - Spinal stenosis, lumbar region without neurogenic claudication Status: Acute Assessment and Plan: Imaging shows severe central canal stenosis and moderate to severe central canal and neural foraminal stenosis. No evidence of cord compression by history or exam at this time. As above patient to follow-up as an outpatient with Neurosurgery. (3) Right sided sciatica: Code(s): M54.31 - Sciatica, right side Status: Acute Assessment and Plan: Plan is as detailed above. (4) Right nephrolithiasis: Code(s): N20.0 - Calculus of kidney Status: Acute Assessment and Plan: Patient did have blood in his urine however it was a straight catheterization. (5) Urinary tract infection: Qualifiers: Hematuria presence: without hematuria Urinary tract infection type: acute cystitis Qualified Code(s): N30.00 - Acute cystitis without hematuria Code(s): N39.0 - Urinary tract infection, site not specified Status: Acute Assessment and Plan: Patient reports urgency and dysuria and will be started on ceftriaxone, urine culture is negative. Can stop IV ceftriaxone now. (6) Dehydration: Code(s): E86.0 - Dehydration Status: Acute Assessment and Plan: He appears dry on exam and by labs and will be hydrated overnight. Encourage oral intake. Daughter reports he passed his swallow study last week at [facility] and records will be requested. Pt failed his bedside swallow and MBS. Cesar rpt MBS on tuesday. Pt is npo here has been on fluids now i will start Clinimix for nutritional status. (7) Paroxysmal atrial fibrillation: Code(s): I48.0 - Paroxysmal atrial fibrillation Status: Acute Assessment and Plan: In a sinus rhythm. Recently started on Xarelto due to CVA and we will continue this though may need to re-evaluate depending on how he does with physical therapy and his fall risk. (8) Dementia: Code(s): F03.90 - Unspecified dementia without behavioral disturbance Status: Acute Assessment and Plan: Continue donepezil. Initiate fall precautions. (9) Cerebrovascular accident: Code(s): I63.9 - Cerebral infarction, unspecified Status: Inactive Assessment and Plan: Looks like pt has had a recent stroke Pt had MRI brain, US carotids in [facility]. Consult neurology Pt failed his swallow study pt made NPO with iv fluids transition to CLINIMAX will need ST and nutritional consult Pt to continue PT/ OT/ ST here Pt is on rectal ASA as he is strict NPO Pt can have echocardiogram for stroke work up MRI and US carotids [facility] reviewed Subjective Date/time seen: 04/11/21 11:57 Interval history: 85-year-old male with dementia, hypertension, depression, paroxysmal atrial fibrillation, and history of stroke who presented to the emergency department via EMS from [facility] for evaluation of weakness and right leg pain. Given his dementia and short-term memory loss he is not able to give a great history. Pt has dementia poor historial, but does complains of weakness in his r
[2021-04-11 12:07] LABS: Glucose Point of Care 83 mg/dl (65-105)
[2021-04-11 12:55] LABS: Basophils Percent Auto 0.5 % (0.2-1.2); Eosinophils Absolute Auto 0.2 K/mm3 (0-0.3); Eosinophils Percent Auto 2.3 % (0-4.4); Hematocrit 36.2 % (42.0-52.0); Hemoglobin 12.1 g/dL (14.0-18.0); Immature Granulocyte Absolute 0.02 K/mm3 (0.00-0.031); Immature Granulocyte Percent A 0.3 % (0-0.5); Lymphocytes Absolute Auto 1.53 K/mm3 (0.9-3.2); Lymphocytes Percent Auto 20.8 % (18.3-44.2); Mean Corpuscular HGB Conc 33.4 g/dl (32-36); Mean Corpuscular Hemoglobin 31.8 pg (26-34); Mean Corpuscular Volume 95.3 fl (80-100); Mean Platelet Volume 9.9 fl (7.4-10.4); Monocytes Absolute Auto 0.6 K/mm3 (0.1-0.6); Neutrophils Percent Auto 68.1 % (45.5-73.1); Platelet Count Result 223 k/mm3 (150-375); Red Cell Distribution Width 13.3 % (11.5-14.5); White Blood Count 7.4 K/mm3 (4.5-10.0)
[2021-04-11 13:08] LABS: Alanine Aminotransferase 31 U/L (4-50); Albumin Level 3.8 g/dL (3.5-5.1); Alkaline Phosphatase 93 U/L (38-126); Anion Gap 7 mmol/L (8-16); Aspartate Amino Transferase 37 U/L (17-59); Bilirubin,Total 1.4 mg/dL (0.2-1.3); Blood Urea Nitrogen 22 mg/dL (9-20); Carbon Dioxide 20 mmol/L (22-30); Chloride 109 mmol/L (98-107); Estimated CRCL calculation 61 ml/min; Estimated Glomerular Filt Rate > 60; Glucose 90 mg/dL (65-110); Magnesium 2.1 mg/dL (1.6-2.3); Potassium 4.2 mmol/L (3.4-5.0); Sodium 136 mmol/L (137-145)
[2021-04-11 13:15] LABS: Partial Thromboplastin Time 37.7 SECONDS (22.3-36.8); Transferrin 152 mg/dL (206-381)
[2021-04-11] MEDS: FAT EMULSIONS IV 20% 250 ML 20.83 ML IVPB (13:47)
[2021-04-11] MEDS: AMINO ACIDS 5%/DEXTROSE 15% 2,000 ML with MULTIVITAMINS-12 INJ VIAL 1 2.5 ML, MULTIVITA... 40 ML IV CONT (13:47)
[2021-04-11 14:15] VITALS: BP 130/71; PULSE 73; RESP 18; TEMP 36.5; O2SAT 100
[2021-04-11 20:00] VITALS: PULSE 76; RESP 21; O2SAT 100
[2021-04-11 22:00] VITALS: BP 108/64; PULSE 76; RESP 21; TEMP 36.7; O2SAT 100
[2021-04-12 06:00] VITALS: BP 98/63; PULSE 63; RESP 20; TEMP 36.2; O2SAT 98
[2021-04-12 06:16] LABS: Anion Gap 3 mmol/L (8-16); Blood Urea Nitrogen 21 mg/dL (9-20); Calcium 8.5 mg/dL (8.4-10.2); Carbon Dioxide 24 mmol/L (22-30); Chloride 107 mmol/L (98-107); Estimated CRCL calculation 61 ml/min; Estimated Glomerular Filt Rate > 60; Glucose 104 mg/dL (65-110); Phosphorus 2.7 mg/dL (2.5-4.5); Potassium 3.8 mmol/L (3.4-5.0); Sodium 134 mmol/L (137-145)
[2021-04-12] MEDS: ASPIRIN 300 MG SUPPOSITORY RECTAL (08:21)
[2021-04-12 08:42] LABS: Glucose Point of Care 90 mg/dl (65-105)
--- NOTE | 2021-04-12 11:22 | PCOTNOTE ---
Attempted to see patient, however patient with nursing staff at this time for new IV placement.
[2021-04-12 11:24] LABS: Triglycerides 127 mg/dL (<150)
[2021-04-12 11:55] LABS: Glucose Point of Care 115 mg/dl (65-105)
--- NOTE | 2021-04-12 13:20 | PM.IMPN ---
Progress Note: A&P Assessment and Plan (1) Closed compression fracture of L3 vertebra: Qualifiers: Encounter type: initial encounter Qualified Code(s): S32.030A - Wedge compression fracture of third lumbar vertebra, initial encounter for closed fracture Code(s): S32.030A - Wedge compression fracture of third lumbar vertebra, initial encounter for closed fracture Status: Acute Assessment and Plan: Likely sustained in fall last week as there were no reports of falls since that time. Dr. Aguirre (neurosurgery at [facility]) was contacted by the ED provider and he recommends outpatient follow-up with him on discharge. Conservative treatment for now including analgesics and progressive mobilization as tolerated. PT/ OT consulted. (2) Lumbar spinal stenosis: Code(s): M48.061 - Spinal stenosis, lumbar region without neurogenic claudication Status: Acute Assessment and Plan: Imaging shows severe central canal stenosis and moderate to severe central canal and neural foraminal stenosis. No evidence of cord compression by history or exam at this time. As above patient to follow-up as an outpatient with Neurosurgery. (3) Right sided sciatica: Code(s): M54.31 - Sciatica, right side Status: Acute Assessment and Plan: Plan is as detailed above. (4) Right nephrolithiasis: Code(s): N20.0 - Calculus of kidney Status: Acute Assessment and Plan: Rpt UA today (5) Urinary tract infection: Qualifiers: Hematuria presence: without hematuria Urinary tract infection type: acute cystitis Qualified Code(s): N30.00 - Acute cystitis without hematuria Code(s): N39.0 - Urinary tract infection, site not specified Status: Acute Assessment and Plan: Patient reports urgency and dysuria and will be started on ceftriaxone, urine culture is negative. Can stop IV ceftriaxone now. (6) Dehydration: Code(s): E86.0 - Dehydration Status: Acute Assessment and Plan: He appears dry on exam and by labs and will be hydrated overnight. Encourage oral intake. Daughter reports he passed his swallow study last week at [facility] and records will be requested. Pt failed his bedside swallow and MBS. Cesar rpt MBS on tuesday. Pt is npo here has been on fluids now i will start Clinimix for nutritional status. (7) Paroxysmal atrial fibrillation: Code(s): I48.0 - Paroxysmal atrial fibrillation Status: Acute Assessment and Plan: In a sinus rhythm. Recently started on Xarelto due to CVA and we will continue this though may need to re-evaluate depending on how he does with physical therapy and his fall risk. (8) Dementia: Code(s): F03.90 - Unspecified dementia without behavioral disturbance Status: Acute Assessment and Plan: Continue donepezil. Initiate fall precautions. (9) Cerebrovascular accident: Code(s): I63.9 - Cerebral infarction, unspecified Status: Inactive Assessment and Plan: Looks like pt has had a recent stroke Pt had MRI brain, US carotids in [facility]. Consult neurology Pt failed his swallow study pt made NPO with iv fluids transition to CLINIMAX will need ST and nutritional consult Pt to continue PT/ OT/ ST here Pt is on rectal ASA as he is strict NPO Pt can have echocardiogram for stroke work up MRI and US carotids from [facility] reviewed Subjective Date/time seen: 04/12/21 13:20 Interval history: Interval history: 85-year-old male with dementia, hypertension, depression, paroxysmal atrial fibrillation, and history of stroke who presented to the emergency department via EMS from [facility] for evaluation of weakness and right leg pain. Given his dementia and short-term memory loss he is not able to give a great history. Pt has dementia poor historian, but does complains of weakness in his r leg. Looks like pt has had a stroke pt also omari
[2021-04-12 13:53] VITALS: BP 118/77; PULSE 95; RESP 18; TEMP 36.8; O2SAT 100
[2021-04-12] MEDS: AMINO ACIDS 5%/DEXTROSE 15% 2,000 ML with MULTIVITAMINS-12 INJ VIAL 1 2.5 ML, MULTIVITA... 40 ML IV CONT (15:59)
[2021-04-12] MEDS: FAT EMULSIONS IV 20% 250 ML 20.83 ML IVPB (16:00)
[2021-04-12 17:00] LABS: Add Urine Microscopic? YES; Appearance Urine Clear (Clear); Bilirubin Urine Negative (Negative); Blood Urine Negative (Negative); Color Urine Amber (Yellow); Glucose Urine UA Negative (Negative); Ketones Urine Trace mg/dL (Negative); Leukocyte Esterase Ur Negative LEU/UL (NEGATIVE); Mucus Urine Rare /lpf; Nitrate Urine Negative (Negative); Protein Urine Negative (Negative); RBC Urine 0-2 /hpf (0-2); Specific Grav Ur 1.026 (1.001-1.035)
[2021-04-12 17:32] LABS: Glucose Point of Care 111 mg/dl (65-105)
[2021-04-12 20:00] VITALS: PULSE 95; RESP 18; O2SAT 100
[2021-04-12 20:52] VITALS: BP 119/76; PULSE 69; RESP 14; TEMP 36.4; O2SAT 94
[2021-04-12 21:32] LABS: Glucose Point of Care 100 mg/dl (65-105)
[2021-04-13 00:53] LABS: Glucose Point of Care 189 mg/dl (65-105)
[2021-04-13 06:00] VITALS: BP 114/71; PULSE 69; RESP 18; TEMP 36.5; O2SAT 97
[2021-04-13 06:16] LABS: Glucose Point of Care 207 mg/dl (65-105)
[2021-04-13 06:45] LABS: Basophils Absolute Auto 0.1 K/mm3 (0.0-0.1); Basophils Percent Auto 0.7 % (0.2-1.2); Eosinophils Absolute Auto 0.2 K/mm3 (0-0.3); Eosinophils Percent Auto 3.1 % (0-4.4); Hematocrit 32.3 % (42.0-52.0); Hemoglobin 11.2 g/dL (14.0-18.0); Immature Granulocyte Absolute 0.02 K/mm3 (0.00-0.031); Immature Granulocyte Percent A 0.3 % (0-0.5); Lymphocytes Absolute Auto 1.56 K/mm3 (0.9-3.2); Lymphocytes Percent Auto 20.9 % (18.3-44.2); Mean Corpuscular HGB Conc 34.7 g/dl (32-36); Mean Corpuscular Hemoglobin 32.2 pg (26-34); Mean Corpuscular Volume 92.8 fl (80-100); Mean Platelet Volume 9.9 fl (7.4-10.4); Monocytes Absolute Auto 0.6 K/mm3 (0.1-0.6); Monocytes Percent Auto 7.6 % (2.6-8.5); Neutrophils Percent Auto 67.4 % (45.5-73.1); Platelet Count Result 226 k/mm3 (150-375); Red Blood Count 3.48 M/mm3 (4.6-6.20); Red Cell Distribution Width 13.3 % (11.5-14.5); White Blood Count 7.5 K/mm3 (4.5-10.0)
[2021-04-13 06:56] LABS: INR 1.3; Prothrombin Time 15.8 Seconds (11.1-14.7)
[2021-04-13 07:00] LABS: Alanine Aminotransferase 31 U/L (4-50); Albumin Level 3.5 g/dL (3.5-5.1); Alkaline Phosphatase 84 U/L (38-126); Anion Gap 4 mmol/L (8-16); Aspartate Amino Transferase 37 U/L (17-59); Bilirubin,Total 1.3 mg/dL (0.2-1.3); Blood Urea Nitrogen 19 mg/dL (9-20); Calcium 8.7 mg/dL (8.4-10.2); Carbon Dioxide 25 mmol/L (22-30); Chloride 107 mmol/L (98-107); Estimated CRCL calculation 61 ml/min; Estimated Glomerular Filt Rate > 60; Glucose 100 mg/dL (65-110); Potassium 3.7 mmol/L (3.4-5.0); Sodium 136 mmol/L (137-145)
[2021-04-13 07:07] LABS: Transferrin 141 mg/dL (206-381)
[2021-04-13] MEDS: ASPIRIN 300 MG SUPPOSITORY RECTAL (08:37)
--- NOTE | 2021-04-13 11:33 | WPDCDIQUERY2 ---
CDI Query Clarification Request -UTI documented on problem list, status acute - Patient reports urgency and dysuria and will be started on ceftriaxone, urine culture is negative. Can stop IV ceftriaxone now. documented in progress note Please clarify it UTI has been ruled in, ruled out, or unable to determine. <Lisa Bassett RN - Last Filed: 04/13/21 11:35> Provider Comments UTI IS RULED OUT <Che Lopez MD - Last Filed: 04/14/21 12:02>
[2021-04-13 11:43] LABS: Glucose Point of Care 107 mg/dl (65-105)
--- NOTE | 2021-04-13 12:52 | PM.IMPN ---
Progress Note: A&P Assessment and Plan (1) Closed compression fracture of L3 vertebra: Qualifiers: Encounter type: initial encounter Qualified Code(s): S32.030A - Wedge compression fracture of third lumbar vertebra, initial encounter for closed fracture Code(s): S32.030A - Wedge compression fracture of third lumbar vertebra, initial encounter for closed fracture Status: Acute Assessment and Plan: Likely sustained in fall last week as there were no reports of falls since that time. Dr. Aguirre (neurosurgery at [facility]) was contacted by the ED provider and he recommends outpatient follow-up with him on discharge. Conservative treatment for now including analgesics and progressive mobilization as tolerated. PT/ OT consulted. (2) Lumbar spinal stenosis: Code(s): M48.061 - Spinal stenosis, lumbar region without neurogenic claudication Status: Acute Assessment and Plan: Imaging shows severe central canal stenosis and moderate to severe central canal and neural foraminal stenosis. No evidence of cord compression by history or exam at this time. As above patient to follow-up as an outpatient with Neurosurgery. (3) Right sided sciatica: Code(s): M54.31 - Sciatica, right side Status: Acute Assessment and Plan: Plan is as detailed above. (4) Right nephrolithiasis: Code(s): N20.0 - Calculus of kidney Status: Acute Assessment and Plan: Rpt UA today (5) Urinary tract infection: Qualifiers: Hematuria presence: without hematuria Urinary tract infection type: acute cystitis Qualified Code(s): N30.00 - Acute cystitis without hematuria Code(s): N39.0 - Urinary tract infection, site not specified Status: Acute Assessment and Plan: Patient reports urgency and dysuria and will be started on ceftriaxone, urine culture is negative. Can stop IV ceftriaxone now. (6) Dehydration: Code(s): E86.0 - Dehydration Status: Acute Assessment and Plan: He appears dry on exam and by labs and will be hydrated overnight. Encourage oral intake. Daughter reports he passed his swallow study last week at [facility] and records will be requested. Pt failed his bedside swallow and MBS. Cesar rpt MBS on tuesday. Pt is npo here has been on fluids now i will start Clinimix for nutritional status. (7) Paroxysmal atrial fibrillation: Code(s): I48.0 - Paroxysmal atrial fibrillation Status: Acute Assessment and Plan: In a sinus rhythm. Recently started on Xarelto due to CVA and we will continue this though may need to re-evaluate depending on how he does with physical therapy and his fall risk. (8) Dementia: Code(s): F03.90 - Unspecified dementia without behavioral disturbance Status: Acute Assessment and Plan: Continue donepezil. Initiate fall precautions. (9) Cerebrovascular accident: Code(s): I63.9 - Cerebral infarction, unspecified Status: Inactive Assessment and Plan: Looks like pt has had a recent stroke Pt had MRI brain, US carotids in [facility]. Consult neurology Pt failed his swallow study pt made NPO with iv fluids transition to CLINIMAX will need ST and nutritional consult Pt to continue PT/ OT/ ST here Pt is on rectal ASA as he is strict NPO Pt can have echocardiogram for stroke work up MRI and US carotids from [facility] reviewed Subjective Date/time seen: 04/13/21 12:52 Interval history: Interval history: 85-year-old male with dementia, hypertension, depression, paroxysmal atrial fibrillation, and history of stroke who presented to the emergency department via EMS from [facility] for evaluation of weakness and right leg pain. Given his dementia and short-term memory loss he is not able to give a great history. Pt has dementia poor historian, but does complains of weakness in his r leg. Looks like pt has had a stroke pt also omari
[2021-04-13 14:00] VITALS: BP 120/87; PULSE 88; RESP 18; TEMP 36.4; O2SAT 100
--- NOTE | 2021-04-13 14:00 | PCNFU ---
Nutrition Follow-Up Complete: Inadequate Oral Intake as related to CVA as evidenced failed MBS. Goal: Meet estimated nutritional needs Patient is progressing towards goal. We will continue with current goal. Pt current nutrition is PPN at 40 ml/hr over 22 hours. Last recorded weight is 94.3 kg, down from 98.1 kg on admit. Bowel Motility:Last BM reported 04/09 Labs Reviewed:Na 136, Hct 32.3, Hgb 11.2 Meds Noted:PPN at 40 ml/hr with 250 ml of 20% of Lipid Emulsion. Skin: WNL Additional Notes: Patient started on Parental Nutrition over the weekend. Plans for MBS today, no results reported at this time. PPN is currently providing 826 kcals and 41 gms protein, currently meeting 40% of caloric needs, 43% protein needs. If patient remains on PPN recommend increasing rate of PPN to 80 ml/hr which will meet 56% of caloric needs and 85% of protein needs. Monitoring: will monitor every Tuesday and Tuesday.
[2021-04-13 15:08] VITALS: BP 146/96; PULSE 96; RESP 18; TEMP 36.4; O2SAT 98
[2021-04-13 20:00] VITALS: PULSE 96; RESP 18; O2SAT 98
[2021-04-13] MEDS: MIRTAZAPINE 15 MG TABLET 45 MG PO (20:11)
[2021-04-13] MEDS: traZODone HCL 50 MG TABLET PO (20:11)
[2021-04-13] MEDS: RIVAROXABAN 20 MG TABLET PO (20:11)
[2021-04-13] MEDS: QUEtiapine FUMARATE 25 MG TABLET PO (20:11)
[2021-04-13] MEDS: ATORVASTATIN 40 MG TABLET PO (20:12)
[2021-04-13] MEDS: lisinopriL 10 MG TABLET PO (20:12)
[2021-04-13] MEDS: DONEPEZIL HCL 10 MG TABLET PO (20:12)
[2021-04-13 22:00] VITALS: BP 123/85; PULSE 77; RESP 21; TEMP 36.7; O2SAT 100
[2021-04-14 05:33] LABS: Hematocrit 31.5 % (42.0-52.0); Hemoglobin 10.9 g/dL (14.0-18.0); Mean Corpuscular HGB Conc 34.6 g/dl (32-36); Mean Corpuscular Hemoglobin 31.6 pg (26-34); Mean Corpuscular Volume 91.3 fl (80-100); Mean Platelet Volume 9.8 fl (7.4-10.4); Platelet Count Result 240 k/mm3 (150-375); Red Blood Count 3.45 M/mm3 (4.6-6.20); Red Cell Distribution Width 13.2 % (11.5-14.5); White Blood Count 7.6 K/mm3 (4.5-10.0)
[2021-04-14 05:47] LABS: Anion Gap 3 mmol/L (8-16); Blood Urea Nitrogen 18 mg/dL (9-20); Calcium 8.7 mg/dL (8.4-10.2); Carbon Dioxide 23 mmol/L (22-30); Chloride 108 mmol/L (98-107); Estimated CRCL calculation 50 ml/min; Estimated Glomerular Filt Rate > 60; Glucose 96 mg/dL (65-110); Phosphorus 3.4 mg/dL (2.5-4.5); Potassium 3.6 mmol/L (3.4-5.0); Sodium 134 mmol/L (137-145); Triglycerides 90 mg/dL (<150)
[2021-04-14 06:00] VITALS: BP 105/53; PULSE 56; RESP 21; TEMP 36.4; O2SAT 100
[2021-04-14] MEDS: lisinopriL 10 MG TABLET PO (07:59)
[2021-04-14] MEDS: ATORVASTATIN 40 MG TABLET PO (08:00)
[2021-04-14] MEDS: TAMSULOSIN HCL 0.4 MG CAPSULE PO (09:15)
[2021-04-14] MEDS: MULTIVITAMINS /C LUTEIN (CENTRUM SILVER) TABLET *BKC 1 TAB PO (09:15)
[2021-04-14] MEDS: allopurinoL 100 MG TABLET PO (09:15)
--- NOTE | 2021-04-14 11:02 | PM.DS ---
DS: Admitting Diagnosis Discharge Date 04/14/2021 Admitting Diagnosis Weakness and right hip pain. DS: Discharge Diagnosis Discharge Diagnosis (1) Closed compression fracture of L3 vertebra: Qualifiers: Encounter type: initial encounter Qualified Code(s): S32.030A - Wedge compression fracture of third lumbar vertebra, initial encounter for closed fracture Code(s): S32.030A - Wedge compression fracture of third lumbar vertebra, initial encounter for closed fracture Status: Acute Assessment and Plan: Pt likely sustained a fall last week as there were no reports of falls since that time. Dr. Aguirre (neurosurgery at [facility]) was contacted by the ED provider and he recommends outpatient follow-up with him on discharge. Conservative treatment for now including analgesics and progressive mobilization as tolerated. PT/ OT consulted. (2) Lumbar spinal stenosis: Code(s): M48.061 - Spinal stenosis, lumbar region without neurogenic claudication Status: Acute Assessment and Plan: Imaging shows severe central canal stenosis and moderate to severe central canal and neural foraminal stenosis. No evidence of cord compression by history or exam at this time. As above patient to follow-up as an outpatient with Neurosurgery. (3) Right sided sciatica: Code(s): M54.31 - Sciatica, right side Status: Acute Assessment and Plan: Plan is as detailed above. (4) Right nephrolithiasis: Code(s): N20.0 - Calculus of kidney Status: Acute Assessment and Plan: Rpt UA today (5) Urinary tract infection: Qualifiers: Hematuria presence: without hematuria Urinary tract infection type: acute cystitis Qualified Code(s): N30.00 - Acute cystitis without hematuria Code(s): N39.0 - Urinary tract infection, site not specified Status: Acute Assessment and Plan: Patient reports urgency and dysuria and will be started on ceftriaxone, urine culture is negative. Can stop IV ceftriaxone now. (6) Dehydration: Code(s): E86.0 - Dehydration Status: Acute Assessment and Plan: He appears dry on exam and by labs and will be hydrated overnight. Encourage oral intake. Daughter reports he passed his swallow study last week at [facility] and records will be requested. Pt failed his bedside swallow and MBS here. Cesar rpt MBS on Tuesday. Pt is npo here was on Clinimix for nutritional status on the weekend. (7) Paroxysmal atrial fibrillation: Code(s): I48.0 - Paroxysmal atrial fibrillation Status: Acute Assessment and Plan: In a sinus rhythm. Recently started on Xarelto due to CVA and ASA 81mg po qdaily (8) Dementia: Code(s): F03.90 - Unspecified dementia without behavioral disturbance Status: Acute Assessment and Plan: Continue donepezil. Initiate fall precautions. (9) Cerebrovascular accident: Code(s): I63.9 - Cerebral infarction, unspecified Status: Inactive Assessment and Plan: Looks like pt has had a recent stroke Pt had MRI brain, US carotids in [facility]. Consult neurology Pt failed his swallow study pt made NPO with iv fluids transition to CLINIMAX will need ST and nutritional consult Pt to continue PT/ OT/ ST here Pt is on rectal ASA as he is strict NPO over the weekend, pt transitioned back to his home oral medications. Pt can have echocardiogram for stroke work up MRI and US carotids from [facility] reviewed echo report here- is as follows - EF is 65% 1. Complete two-dimensional, color flow and Doppler transthoracic echocardiogram is performed. 2. Technically difficult study with limited views. Regional wall motion assessment limited due to poor endomyocardial border definition. 3. Left ventricular chamber dimension is normal. 4. Left ventricular systolic function is normal, estimated at 65-70%. 5. Left ventricular septal wall mot
--- NOTE | 2021-04-14 11:07 | PCSTNOTE ---
Please refer to the Modified Barium Swallow Evaluation in the EMR.
[2021-04-14 11:50] LABS: EDCOVIDSCREEN Negative (Negative)
[2021-04-14] MEDS: ASPIRIN 325 MG TABLET PO (12:36)
== END 2021-04-14 13:09 | DRG 552 ==
LOC: ANHED 16:33 → ANH2MED 17:39
PROVIDERS: Physician Assistant; Admitting Provider Internal Medicine; Emergency Provider Emergency Medicine; PCP Internal Medicine; Visit Provider Family Medicine
DX: S32.030A Wedge compression fracture of third lumbar vertebra, initial encounter for closed fracture (principal); G83.4 Cauda equina syndrome; M48.061 Spinal stenosis, lumbar region without neurogenic claudication; W19.XXXA Unspecified fall, initial encounter; F03.90 Unspecified dementia, unspecified severity, without behavioral disturbance, psychotic disturbance, mood disturbance, and anxiety; Z95.2 Presence of prosthetic heart valve; Z20.822 Contact with and (suspected) exposure to COVID-19; E86.0 Dehydration; I48.0 Paroxysmal atrial fibrillation; F32.A Depression, unspecified; M16.0 Bilateral primary osteoarthritis of hip; M17.11 Unilateral primary osteoarthritis, right knee; M54.31 Sciatica, right side; N20.0 Calculus of kidney; E78.5 Hyperlipidemia, unspecified; K21.9 Gastro-esophageal reflux disease without esophagitis; Z66 Do not resuscitate; Z79.01 Long term (current) use of anticoagulants; Z79.82 Long term (current) use of aspirin; Z79.899 Other long term (current) drug therapy; Z86.73 Personal history of transient ischemic attack (TIA), and cerebral infarction without residual deficits; Z98.49 Cataract extraction status, unspecified eye
CPT/HCPCS: 36415; 72131; 73502; 73564; 80048; 80053; 81001; 81025; 82948; 83735; 84100; 84443; 84466; 84478; 85025; 85027; 85610; 85730; 87086; 87426; 92526; 92610; 92611; 93306; 96361; 96365; 97110; 97161; 97166; 97530; 97535; 99285; A9270; C9113; C9803; G0378; J0696; J2060; J7030; J7040

== ENCOUNTER 2022-05-03 09:52 | Emergency (ER) | payer OTHER, MEDICARE, SELFPAY ==
[2022-05-03] VITALS (16 sets, daily range): BP systolic 46–123; BP diastolic 19–84; PULSE 87–132; RESP 11–30; TEMP 36.7; O2SAT 90–100
--- NOTE | ~2022-05-03 | XR_ITS ---
EXAMINATION: XR chest 1V portable DATE: 05/03/2022 11:13 INDICATION: Altered mental status TECHNIQUE: frontal view of the chest was obtained. COMPARISON: Chest radiograph dated 04/22/2020 FINDINGS: Persistent mild streaky left basilar atelectasis. Skinfold projects over the right midlung zone. No p ulmonary edema, pleural effusion or pneumothorax. The cardiomediastinal silhouette is within normal l imits for AP technique. Median sternotomy wires and aortic valve repair. Severe thoracic spondylosis. IMPRESSION: 1. Mild left basilar atelectasis. Reviewed, dictated and finalized at location A. EMENT DIRECTOR
--- NOTE | 2022-05-03 09:54 | ECG_ITS ---
Measurements Intervals Allred Rate: 113 P: GA: 0 QRS: 11 QRSD: 106 T: 146 QT: 311 QTc: 427 Interpretive Statements ATRIAL FIBRILLATION INCOMPLETE LEFT BUNDLE BRANCH BLOCK ABNORMAL ECG COMPARED TO 04/22/2020 NO SIGNIFICANT CHANGE Electronically Signed On 05-03-2022 12:47:56 STEAM FITTER by Matthew Boo M.D.
[2022-05-03 10:03] LABS: Basophils Absolute Auto 0.1 K/mm3 (0.0-0.1); Basophils Percent Auto 0.4 % (0.2-1.2); Eosinophils Absolute Auto 0.1 K/mm3 (0-0.3); Eosinophils Percent Auto 0.4 % (0-4.4); Hematocrit 44.2 % (42.0-52.0); Hemoglobin 13.9 g/dL (14.0-18.0); Immature Granulocyte Absolute 0.11 K/mm3 (0.00-0.031); Immature Granulocyte Percent A 0.7 % (0-0.5); Lymphocytes Percent Auto 13.2 % (18.3-44.2); Mean Corpuscular HGB Conc 31.4 g/dl (32-36); Mean Corpuscular Hemoglobin 32.5 pg (26-34); Mean Corpuscular Volume 103.3 fl (80-100); Mean Platelet Volume 10.6 fl (7.4-10.4); Monocytes Absolute Auto 0.7 K/mm3 (0.1-0.6); Monocytes Percent Auto 4.2 % (2.6-8.5); Neutrophils Absolute Auto 13.6 K/mm3 (1.3-6.7); Neutrophils Percent Auto 81.1 % (45.5-73.1); Platelet Count Result 272 k/mm3 (150-375); Red Blood Count 4.28 M/mm3 (4.6-6.20); Red Cell Distribution Width 14.9 % (11.5-14.5); White Blood Count 16.7 K/mm3 (4.5-10.0)
[2022-05-03 10:11] LABS: Alveolar/Arterial O2 Gradient 429.7 mmHg; Carboxyhemoglobin 0.7 % THb (0-2.0); Fractional Inspired Oxygen 100 %; HCO3 ABG 11.2 mEq/l (22.0-26.0); Methemoglobin ABG 0.4 %THb (0-1.5); Oxygen Content ABG 20.8 %vol (16.0-22.0); Oxygen Saturation ABG 99.6 % (95.0-100.0); Oxyhemoglobin 97.8 % THb (90.0-100.0); PO2 ABG 262.4 mmHg (80.0-100.0); PO2 FiO2 Ratio Arterial Blood 2.62 %; Reduced Hemoglobin 1.1 %THb (0-5.0); Total Hemoglobin 14.7 g/dL (12.0-18.0); pH ABG 7.348 (7.350-7.450)
[2022-05-03 10:12] LABS: Device NON-REBREATHER MASK; PCO2 ABG 20.9 mmHg (35.0-45.0); Site Drawn LEFT RADIAL
[2022-05-03 10:16] LABS: INR 3.4; Prothrombin Time 33.3 Seconds (11.1-14.7)
[2022-05-03 10:17] LABS: Partial Thromboplastin Time 42.9 SECONDS (22.3-36.8)
[2022-05-03 10:26] LABS: Lactic Acid Reflex 4.6 mmol/L (0.7-2.0)
[2022-05-03 10:39] LABS: Albumin Level 4.2 g/dL (3.5-5.1)
[2022-05-03 10:40] LABS: Alanine Aminotransferase 40 U/L (6-50); Alkaline Phosphatase 91 U/L (38-126); Anion Gap 18 mmol/L (8-16); Aspartate Amino Transferase 42 U/L (17-59); Carbon Dioxide 12 mmol/L (22-30); Chloride 125 mmol/L (98-107); Estimated CRCL calculation 5 ml/min; Estimated Glomerular Filt Rate 6; Glucose 134 mg/dL (65-110); Potassium 5.9 mmol/L (3.4-5.0); Sodium 155 mmol/L (137-145)
[2022-05-03 10:42] LABS: Appearance Urine Slightly Cloudy (Clear); Bilirubin Urine 2+ (Negative); Blood Urine 1+ (Negative); Color Urine Amber (Yellow); Glucose Urine UA Negative (Negative); Ketones Urine 1+ mg/dL (Negative); Leukocyte Esterase Ur Trace LEU/UL (Negative); Nitrate Urine Negative (Negative); Protein Urine 1+ mg/dL (Negative); Specific Grav Ur 1.025 (1.001-1.035); Urobilinogen Urine 0.2 mg/dL (<2.0)
[2022-05-03 10:46] LABS: Blood Urea Nitrogen 168 mg/dL (9-20)
[2022-05-03 10:46] LABS: Bacteria Urine Trace /hpf; Mucus Urine Rare /lpf; RBC Urine 21-50 /hpf (0-2)
[2022-05-03 10:47] LABS: Add Urine Microscopic? YES
[2022-05-03] MEDS: SODIUM CHLORIDE 0.9% IV 1,000 ML 999 ML IV CONT ×2 (10:54→11:17)
--- NOTE | 2022-05-03 12:31 | PC.NURSE ---
Family deciding to contact hospice for pt
[2022-05-03] MEDS: MORPHINE SULFATE (*CRX) 4 MG/ML INJ IV PUSH (12:48)
[2022-05-03 13:01] LABS: Reflex Lactic Acid Yes or No Add Lactic
--- NOTE | 2022-05-03 13:16 | PCCCNOTE ---
Addendum entered by Christine Mclaughlin RN 05/03/22 13:53: Yanci RÍOS, Christina her and meeting with family in Room 12. Original Note: Met with patient, daughter Aye and grand daughter at bedside in Rm 12 to discuss hospice. Aye is the POA, and does not want to be suffering. POA is verified as Aye with POA scanned into the record. Educated on difference between palliative and hospice. Aye is wanting to proceed with hospice, hospice explained. Does not have a preference in hospice providers but does want to see if will qualify for GIP Called to Jeri at [facility] and asked what hospice faciliites that they work with and she states [facility] or [facility]. Update provided and will see if qualify for GIP but if not does then will come back with hospice. Called to Yanci with referral, requesting screening for GIP. Fax'd facesheet, order and POA paperwork. Aye is very worried that her sister will cause up roar as she does not agree with hospice. Explained that POA paperwork is very clear that patient assigned her as the POA so we will follow her directive but hospice and medical team can assist with conversations with her sister. Offered wire setter services which were declined. Awaiting arrival from Yanci.
--- NOTE | 2022-05-03 13:31 | PC.NURSE ---
Pt family at bedside with family
--- NOTE | 2022-05-03 13:33 | ED.AMS ---
HPI - Altered Mental Status General Chief Complaint: Altered Mental Status Stated Complaint: unresponsive Time Seen by Provider: 05/03/22 09:54 History of Present Illness HPI narrative: Patient is an 86-year-old male who presents from his local long term with unresponsiveness. Patient found to be hypoxic and placed on nonrebreather head long term. Normally responsive to sternal rub for them. Has history of Alzheimer's. Family reports patient has had poor p.o. intake over the last couple weeks. Patient had recent hospitalization as beginning of the month due to vertebral fracture and UTI. Patient has been declining since then according to family. Related Data Home Medications Medication Instructions Recorded Confirmed mirtazapine 45 mg tablet 45 mg PO HS 04/22/20 04/08/21 polyethylene glycol 3350 17 gram 17 g PO DAILY PRN Constipation 04/22/20 04/08/21 oral powder packet (Miralax) quetiapine 25 mg tablet 25 mg PO HS 04/22/20 04/08/21 rivaroxaban 20 mg tablet (Xarelto) 20 mg PO HS 04/22/20 04/08/21 acetaminophen 325 mg tablet 325 - 650 mg PO Q4-6H PRN Pain 04/08/21 04/08/21 allopurinol 100 mg tablet 100 mg PO DAILY 04/08/21 04/08/21 aspirin 81 mg tablet 81 mg PO DAILY 04/08/21 04/08/21 atorvastatin 40 mg tablet 40 mg PO DAILY 04/08/21 04/08/21 docusate sodium 100 mg capsule 100 mg PO BID PRN Constipation 04/08/21 04/08/21 (Colace) donepezil 10 mg tablet 10 mg PO HS 04/08/21 04/08/21 furosemide 20 mg tablet (Lasix) 20 mg PO DAILY 04/08/21 04/08/21 hqjireuuxhc-polxwpatv-qvv C-Mn 1 tablet PO QPM 04/08/21 04/08/21 guaifenesin 600 mg tablet, 600 mg PO BID 04/08/21 04/08/21 extended release 12 hr (Mucinex) lisinopril 10 mg tablet 10 mg PO DAILY 04/08/21 04/08/21 multivit with minerals-iron 18 1 tablet PO DAILY 04/08/21 04/08/21 mg-folic ac 400 mcg-vit K 25 mcg tablet (Adults Multivitamin) pantoprazole 40 mg tablet,delayed 40 mg PO BID 04/08/21 04/08/21 release simethicone 125 mg chewable tablet 125 mg PO TID PRN heartburn 04/08/21 04/08/21 (Gas Relief (simethicone)) tamsulosin 0.4 mg capsule (Flomax) 0.4 mg PO DAILY 04/08/21 04/08/21 trazodone 50 mg tablet 50 mg PO HS 04/08/21 04/08/21 Allergies Allergy/AdvReac Type Severity Reaction Status Date / Time No Known Allergies Allergy Verified 04/08/21 17:33 Review of Systems Review of Systems: ROS unobtainable: Yes unobtainable due to medical condition PMFSH Past Medical History Medical History Cerebrovascular accident Dementia Depression Gastroesophageal reflux disease History of kidney stones Hyperlipidemia Paroxysmal atrial fibrillation Surgical History Surgical History History of aortic valve replacement History of cataract extraction History of cystoscopy Family History Family History Other Hypertension Social History Social History Social History: Resides at [facility]. Lifelong nonsmoker. No alcohol or drug use. 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 Elsie Braden, daughter, is secondary. Code status: DNR. Spiritual care concerns: No Exam Narrative: GENERAL: Chronically ill-appearing, frail, poorly responsive. HEAD: Normocephalic, atraumatic. EYES: PERRL and EOMI. ENT: Dry mucous membranes CHEST: Clear to auscultation. No respiratory distress. HEART: Regular rate and rhythm that is tachycardic. Normal peripheral pulses. ABDOMEN: Soft, nontender, nondistended. EXTREMITIES: Normal range of motion. No edema. SKIN: Warm, dry, poor skin turgor. NEURO: Patient appears encephalopathic voice awake and localizes pain but does not follow commands. Course Course Emergency Course: 1333: I had a prolonged conversation with the patient's POA at the bedside about the se
[2022-05-03] MEDS: LORazepam INJ (*CRX) 2 MG/ML VIAL IV PUSH (13:36)
[2022-05-03 13:59] LABS: Lactic Acid 2.5 mmol/L (0.7-2.0)
--- NOTE | 2022-05-03 14:00 | PC.NURSE ---
[facility] here evaluating pt
--- NOTE | 2022-05-03 16:35 | PM.IMHP ---
H&P: HPI History of Present Illness Date/Time: 05/03/22 16:35 Chief Complaint: Uncontrolled dyspnea and restlessness Narrative: This unfortunate 86-year-old gentleman with a history of dementia was in relatively good health until 2019 when he contracted COVID-19. Hospitalized for about 1 month. Was in rehab and then assisted living after that. He had a stroke about 8-9 months ago and was unable to walk with a walker after that. He was transferred to [facility] for long-term care. While at [facility] she contracted the scabies and was treated for that. His appetite waxed and waned. He fell several times. Was getting ibuprofen for his falls. His last creatinine at [facility] was 1.1 and 2020. He recently had labs at [facility] and urine test for UTI all of which were reported to the family as unremarkable. Six over the weekend his appetite waned. He drinks only 1 in sugar and some water 2 days ago. He did not have much oral intake at all yesterday. He presented the emergency room today agitated and thrashing about. His creatinine was found to be 9.1. BUN 168. Sodium 155 potassium 5.9 chloride 125 carbon dioxide 12. Glucose was 134 and lactic acid 2.5. Liver functions were normal. Urine showed no evidence for infection there were 21-50 red cells per high-power field and 4-6 white cells per her prior field but only trace bacteria. White count was 47516 and hemoglobin 13.9 with platelets [id number]. INR was 3.4 (on Xarelto). PH 7.348 pCO2 20.9 PO2 262.4 bicarbonate 11.2 on a non-rebreather mask at 15 L. Review of Systems Review of Systems: ROS unobtainable: Yes unobtainable due to medical condition [facility] Past Medical History Medical History Cerebrovascular accident Dementia Depression Gastroesophageal reflux disease History of kidney stones Hyperlipidemia Paroxysmal atrial fibrillation Surgical History Surgical History History of aortic valve replacement History of cataract extraction History of cystoscopy Family History Family History Other Hypertension Social History Social History Social History: Resides at [facility]. Lifelong nonsmoker. No alcohol or drug use. 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 Elsie Braden, daughter, is secondary. Code status: DNR. Spiritual care concerns: No Meds Home Medications and Allergies Home Medications Medication Instructions Recorded Confirmed Type mirtazapine 45 mg tablet 45 mg PO HS 04/22/20 04/08/21 History polyethylene glycol 3350 17 gram 17 g PO DAILY PRN Constipation 04/22/20 04/08/21 History oral powder packet (Miralax) quetiapine 25 mg tablet 25 mg PO HS 04/22/20 04/08/21 History rivaroxaban 20 mg tablet (Xarelto) 20 mg PO HS 04/22/20 04/08/21 History acetaminophen 325 mg tablet 325 - 650 mg PO Q4-6H PRN Pain 04/08/21 04/08/21 History allopurinol 100 mg tablet 100 mg PO DAILY 04/08/21 04/08/21 History aspirin 81 mg tablet 81 mg PO DAILY 04/08/21 04/08/21 History atorvastatin 40 mg tablet 40 mg PO DAILY 04/08/21 04/08/21 History docusate sodium 100 mg capsule 100 mg PO BID PRN Constipation 04/08/21 04/08/21 History (Colace) donepezil 10 mg tablet 10 mg PO HS 04/08/21 04/08/21 History furosemide 20 mg tablet (Lasix) 20 mg PO DAILY 04/08/21 04/08/21 History [id number]-djogbkguu-fxr C-Mn 1 tablet PO QPM 04/08/21 04/08/21 History guaifenesin 600 mg tablet, 600 mg PO BID 04/08/21 04/08/21 History extended release 12 hr (Mucinex) lisinopril 10 mg tablet 10 mg PO DAILY 04/08/21 04/08/21 History multivit with minerals-iron 18 1 tablet PO DAILY 04/08/21 04/08/21 History mg-folic ac 400 mcg-vit K 25 mcg tablet (Adults Multivitamin) pantoprazole 40 mg tablet,delayed 40 m
== END 2022-05-03 22:01 | disposition hospice, inpatient (51) ==
PROVIDERS: Emergency Provider Emergency Medicine; PCP Family Medicine
DX: N17.9 Acute kidney failure, unspecified (principal); I48.0 Paroxysmal atrial fibrillation; E87.0 Hyperosmolality and hypernatremia; E87.5 Hyperkalemia; F02.80 Dementia in other diseases classified elsewhere, unspecified severity, without behavioral disturbance, psychotic disturbance, mood disturbance, and anxiety; G30.9 Alzheimer's disease, unspecified; E78.5 Hyperlipidemia, unspecified; K21.9 Gastro-esophageal reflux disease without esophagitis; F32.A Depression, unspecified; Z87.442 Personal history of urinary calculi; Z87.440 Personal history of urinary (tract) infections; Z95.2 Presence of prosthetic heart valve; Z98.49 Cataract extraction status, unspecified eye; Z66 Do not resuscitate; Z79.82 Long term (current) use of aspirin; Z79.01 Long term (current) use of anticoagulants; I45.10 Unspecified right bundle-branch block
CPT/HCPCS: 36415; 36600; 51701; 71045; 80053; 81001; 82375; 82805; 83050; 83605; 85025; 85610; 85730; 93005; 96361; 96374; 96375; 99285; J2060; J2270; J7030

== ENCOUNTER 2022-05-03 14:50 | HOS | payer OTHER, MEDICARE, SELFPAY ==
--- NOTE | 2022-05-03 16:20 | ADMGEN ---
This patient, Willis Flynn, was admitted to Medical Room 341-01. Patient/family oriented to hospital policies and general routines including ID bracelet, bed and alarms, visiting hours, pain management, procedures, bathroom and other care routines, personal items, smoking policy, room service/diet, and visiting hours. Information on how to activate the Rapid Response Team has been discussed. Patient/Family are encouraged to report perceived risks to care and to ask questions if they do not understand what they are told or what they should do.
--- NOTE | 2022-05-03 17:14 | HP_ITS ---
This report was moved to the correct visit on 05/05/22. Original report was signed by Chino Saenz MD on 05/03/22 [id number]. H&P: HPI History of Present Illness Date/Time: 05/03/22 16:35 Chief Complaint: Uncontrolled dyspnea and restlessness Narrative: This unfortunate 86-year-old gentleman with a history of dementia was in relatively good health until 2019 when he contracted COVID-19. Hospitalized for about 1 month. Was in rehab and then assisted living after that. He had a stroke about 8-9 months ago and was unable to walk with a walker after that. He was transferred to [facility] for long-term care. While at [facility] she contracted the scabies and was treated for that. His appetite waxed and waned. He fell several times. Was getting ibuprofen for his falls. His last creatinine at [facility] was 1.1 and 2020. He recently had labs at [facility] and urine test for UTI all of which were reported to the family as unremarkable. Six over the weekend his appetite waned. He drinks only 1 in sugar and some water 2 days ago. He did not have much oral intake at all yesterday. He presented the emergency room today agitated and thrashing about. His creatinine was found to be 9.1. BUN 168. Sodium 155 potassium 5.9 chloride 125 carbon dioxide 12. Glucose was 134 and lactic acid 2.5. Liver functions were normal. Urine showed no evidence for infection there were 21-50 red cells per high-power field and 4-6 white cells per her prior field but only trace bacteria. [place] count was [address] and hemoglobin 13.9 with platelets [id number]. INR was 3.4 (on Xarelto). PH 7.348 pCO2 20.9 PO2 262.4 bicarbonate 11.2 on a non- rebreather mask at 15 L. Review of Systems Review of Systems: ROS unobtainable: Yes unobtainable due to medical condition [facility] Past Medical History Medical History Cerebrovascular accident Dementia Depression Gastroesophageal reflux disease History of kidney stones Hyperlipidemia Paroxysmal atrial fibrillation Surgical History Surgical History History of aortic valve replacement History of cataract extraction History of cystoscopy Family History Family History Other Hypertension Social History Social History Social History: Resides at [facility]. Lifelong nonsmoker. No alcohol or drug use. Aye Chadwick, daughter, is his primary healthcare power of bankruptcy attorney. Elsie Braden, daughter, is secondary. Code status: DNR. Spiritual care concerns: No Meds Home Medications and Allergies Home Medications Medication Instructions Recorded Confirmed Type mirtazapine 45 mg tablet 45 mg PO HS 04/22/20 04/08/21 History polyethylene glycol 3350 17 gram 17 g PO DAILY PRN Constipation 04/22/20 04/08/21 History oral powder packet (Miralax) quetiapine 25 mg tablet 25 mg PO HS 04/22/20 04/08/21 History rivaroxaban 20 mg tablet (Xarelto) 20 mg PO HS 04/22/20 04/08/21 History acetaminophen 325 mg tablet 325 - 650 mg PO Q4-6H PRN Pain 04/08/21 04/08/21 History allopurinol 100 mg tablet 100 mg PO DAILY 04/08/21 04/08/21 History aspirin 81 mg tablet 81 mg PO DAILY 04/08/21 04/08/21 History atorvastatin 40 mg tablet 40 mg PO DAILY 04/08/21 04/08/21 History docusate sodium 100 mg capsule 100 mg PO BID PRN Constipation 04/08/21 04/08/21 History (Colace) donepezil 10 mg tablet 10 mg PO HS 04/08/21 04/08/21 History furosemide 20 mg tablet (Lasix) 20 mg PO DAILY 04/08/21 04/08/21 History glucos
[2022-05-03 18:39] VITALS: PULSE 50; RESP 24
[2022-05-03] MEDS: HYDROmorphone HCL/PF (*CRX) 50 MG in SODIUM CHLORIDE 0.9% IV 95 ML IV CONT (18:39)
[2022-05-03 20:00] VITALS: O2SAT 98
[2022-05-03] MEDS: ARTIFICIAL TEARS OPHTH SOLN 15 ML BOTTLE 1 DROP EACH EYE (20:17)
--- NOTE | 2022-05-04 01:18 | PC.NURSE ---
0040 patient found without pulse, bp, respirations or corneal reflex. family at bedside at time of .
--- NOTE | 2022-05-04 01:46 | PC.NURSE ---
PATIENT TO GAL PER CART.
--- NOTE | 2022-05-04 12:36 | PM.DDS ---
Discharge Summary Date and Time Date of : 05/04/22 Time of : 00:40 Provider Pronounced By: RADHA CHUA RN Probable Cause of Probable Cause of : Acute renal failure with associated metabolic encephalopathy Summary Hospital Course: Admitted to inpatient hospice for control of symptoms Medication titration to comfort Mr. Flynn peacefully Additional Data Confirmation of as documented by pronouncing clinician: Pupillary Reflex, Palpable Pulses, Response to Stimuli, Heart Tones and Breath Sounds Name of Provider Notified: ERIC TATE MD Time Provider Notified: 01:45 Provider Requests Autopsy: No Family Requests Autopsy: No Crime Laboratory Analyst Notified: Yes Date [facility] Notified of : 05/04/22 Time [facility] Notified of : 01:05
== END 2022-05-04 00:40 | disposition expired | DRG 951 ==
PROVIDERS: Admitting Provider Internal Medicine; PCP Family Medicine; Visit Provider Internal Medicine
DX: Z51.5 Encounter for palliative care (principal); G93.41 Metabolic encephalopathy; N17.9 Acute kidney failure, unspecified; E87.0 Hyperosmolality and hypernatremia; E86.0 Dehydration; I48.0 Paroxysmal atrial fibrillation; F03.90 Unspecified dementia, unspecified severity, without behavioral disturbance, psychotic disturbance, mood disturbance, and anxiety; K21.9 Gastro-esophageal reflux disease without esophagitis; Z86.73 Personal history of transient ischemic attack (TIA), and cerebral infarction without residual deficits; Z86.16 Personal history of COVID-19; Z79.01 Long term (current) use of anticoagulants
CPT/HCPCS: A9270; J1170